=== PATIENT | female | born 1940 | race Caucasian/White ===

== ENCOUNTER 2016-07-25 12:00 | Inpatient (IN) | payer MEDICARE, OTHER ==
[~2016-07-25] VITALS: Ht 154.9 cm; Wt 78.0 kg
[2016-08-01] VITALS (22 sets, daily range): BP systolic 96–138; BP diastolic 41–68; PULSE 70–86; RESP 7–19; Ht 154.9 cm; Wt 78.0 kg
[2016-08-01] MEDS ORDERED: LACTATED RINGER'S 1,000 ML IV* ONE (06:30)
[2016-08-01] MEDS ORDERED: CEFAZOLIN 2 GM/50 ML (PMX) 50 ML IVPB ONE (06:30)
--- NOTE | 2016-08-01 06:41 | HPN ---
Date/Time of Note Date/Time of Note DATE: 08/01/16 TIME: 06:41 Interval H&P Admission Note Pt. seen H&P reviewed: No system changes SILVIA ORTIZ MD Aug 01, 2016 06:41
[2016-08-01] MEDS ORDERED: THROMBIN 5000 UNIT VIAL ONE (06:48)
[2016-08-01] MEDS ORDERED: BUPIVACAINE 0.25%/EPI (SDV) 30 ML INJ ONE (06:48)
[2016-08-01] MEDS ORDERED: GELATIN SIZE 100 SPONGE ONE (06:48)
[2016-08-01] MEDS ORDERED: BUPIVACAINE 0.25% (MPF) 30 ML INJ ONE (06:49)
[2016-08-01] MEDS ORDERED: HEPARIN 1000 UNITS/ML 10 ML INJ ONE (06:49)
[2016-08-01] MEDS ORDERED: CEFAZOLIN 1 GM INJ ONE (07:00)
[2016-08-01] MEDS ORDERED: SUCCINYLCHOLINE CHLORIDE 100 MG/5 ML SYG IV ONE (07:07)
[2016-08-01] MEDS ORDERED: FENTAnyl 50 MCG/ML VIAL ONE (07:07)
[2016-08-01] MEDS ORDERED: PROPOFOL 20 ML ONE (07:07)
[2016-08-01] MEDS ORDERED: ONDANSETRON 4 MG INJ ONE (07:07)
[2016-08-01] MEDS ORDERED: ROCURONIUM 50 MG INJ ONE (07:07)
[2016-08-01] MEDS ORDERED: METOCLOPRAMIDE 10 MG INJ ONE (07:08)
[2016-08-01] MEDS ORDERED: DULO60CA6 PO (07:19)
[2016-08-01] MEDS ORDERED: SERT-165 PO (07:19)
[2016-08-01] MEDS ORDERED: DOXE10CA PO (07:19)
[2016-08-01] MEDS ORDERED: OMEP20CA16 PO (07:19)
[2016-08-01] MEDS ORDERED: LOVA20TA PO (07:19)
[2016-08-01] MEDS ORDERED: IBUP-1542 PO (07:19)
[2016-08-01] MEDS ORDERED: LYRI100 PO (07:19)
[2016-08-01] MEDS ORDERED: PREM3 PO (07:19)
[2016-08-01] MEDS ORDERED: POLYMYXIN/BACITRACIN 1L IRRIG ONE (07:25)
[2016-08-01 07:26] LABS: ADD SCAN DIFF NO
[2016-08-01 07:30] LABS: ALBUMIN 4.7 g/dl (3.3-4.9); ALBUMIN/GLOBULIN RATIO 1.8; BILIRUBIN,INDIRECT 0.3 mg/dl (0-1.1); BILIRUBIN,TOTAL 0.3 mg/dl (0.2-1.3); TOTAL PROTEIN 7.3 g/dl (6.1-8.1)
[2016-08-01 07:31] LABS: CALCIUM 9.5 mg/dl (8.4-10.2); CREATININE 0.62 mg/dl (0.44-1.00)
[2016-08-01 07:33] LABS: BASOPHILS % 0.8 % (0.0-2.0); EOSINOPHILS # 0.2 10^3/ul (0.0-0.5); EOSINOPHILS % 6.5 % (0.0-7.0); HEMATOCRIT 35.8 % (37.0-47.0); HEMOGLOBIN 11.1 g/dl (12.0-16.0); LYMPHOCYTES # 1.1 10^3/ul (0.8-2.9); LYMPHOCYTES % 30.4 % (15.0-51.0); MEAN CORPUSCULAR HEMOGLOBIN 26.4 pg (29.0-33.0); MEAN CORPUSCULAR VOLUME 85.2 fl (82.0-101.0); MEAN PLATELET VOLUME 9.9 fl (7.4-10.4); MONOCYTE # 0.4 10^3/ul (0.3-0.9); MONOCYTES % 10.6 % (0.0-11.0); NEUTROPHIL # 1.9 10^3/ul (1.6-7.5); NEUTROPHILS % 51.4 % (39.0-77.0); PLATELET COUNT 268 10^3/UL (140-415); RED CELL DISTRIBUTION WIDTH 14.3 % (11.5-14.5); WHITE BLOOD COUNT 3.7 10^3/ul (4.8-10.8)
[2016-08-01 07:44] LABS: INR 0.94; PROTIME 12.6 Sec (12.2-14.2)
[2016-08-01 07:45] LABS: PARTIAL THROMBOPLASTIN TIME 26.5 Sec (25.0-35.0)
[2016-08-01] MEDS ORDERED: GELATIN SIZE 100 SPONGE TOP ONE (08:57)
[2016-08-01] MEDS ORDERED: THROMBIN 5000 UNIT VIAL TOP ONE (08:58)
[2016-08-01] MEDS ORDERED: BUPIVACAINE 0.25%/EPI (SDV) 30 ML INJ INJ ONE (08:59)
[2016-08-01] MEDS ORDERED: ONDANSETRON 4 MG INJ IV PRN ×2 (09:00→12:30)
[2016-08-01] MEDS ORDERED: FENTAnyl 50 MCG/ML VIAL IV PRN (09:00)
[2016-08-01] MEDS ORDERED: morphine (1 MG/ML) 10ML SYRINGE IV PRN ×3 (09:00)
--- NOTE | 2016-08-01 09:19 | RADRPT ---
PROCEDURE: XR Chest 1 View. CLINICAL INDICATION: Abnormal breath sounds, preop. TECHNIQUE: AP view of the chest was obtained. COMPARISON: None. FINDINGS: The cardiomediastinal silhouette is within normal limits. No consolidations are identified. No pneu mothorax is seen. Osseous structures are intact. IMPRESSION: No visualized active disease. RPTAT: AA .Jamin Garrido MD, Date Time Electronically viewed and signed by .Jamin Garrido MD, on 08/01/2016 09:18 .P/
[2016-08-01] MEDS: FENTAnyl 50 MCG/ML VIAL IV PRN ×4 (11:25→12:13)
[2016-08-01 11:54] LABS: ADD UMIC NO; UR BILIRUBIN (Dip) NEGATIVE (NEGATIVE); UR BLOOD (Dip) NEGATIVE (NEGATIVE); UR CLARITY CLEAR (CLEAR); UR COLOR LT. YELLOW (YELLOW); UR GLUCOSE (Dip) NEGATIVE (NEGATIVE); UR KETONES (Dip) NEGATIVE (NEGATIVE); UR LEUKOCYTE ESTERASE (Dip) NEGATIVE (NEGATIVE); UR NITRITE (Dip) NEGATIVE (NEGATIVE); UR TOTAL PROTEIN (Dip) NEGATIVE (NEGATIVE); UR UROBILINOGEN (Dip) 0.2 E.U./dL (0.1-1.0)
--- NOTE | 2016-08-01 12:05 | OPR ---
Date/Time of Note Date/Time of Note DATE: 08/01/16 TIME: 11:34 Operative Report Free Text/Dictation DATE OF OPERATION: 08/01/2016 PREOPERATIVE DIAGNOSES: 1. C4-5 anterolisthesis with severe spinal stenosis with myelomylacia and bilateral C5 radiculopathy with myelopathy 2. C5-6 severe spinal stenosis with myelopathy 3. C6-7 moderate spinal stenosis with myelopathy POSTOPERATIVE DIAGNOSES: 1. C4-5 anterolisthesis with severe spinal stenosis with myelomylacia and bilateral C5 radiculopathy with myelopathy 2. C5-6 severe spinal stenosis with myelopathy 3. C6-7 moderate spinal stenosis with myelopathy OPERATION PERFORMED: 1. Anterior cervical C4-5 discectomy 2. Partial cervical C4 vertebrectomy 3. Partial cervical C5 vertebrectomy 4. Anterior cervical C4-5 instrumented fusion with allograft cage and plate 5. Anterior cervical C5-6 discectomy 6. Partial cervical C6 vertebrectomy 7. Anterior cervical C5-6 instrumented fusion with allograft cage and plate 8. Anterior cervical C6-7 discectomy 9. Partial cervical C7 vertebrectomy 10. Anterior cervical C6-7 instrumented fusion with allograft cage and plate SURGEON: Silvia Ortiz MD CLIENT SERVICE REPRESENTATIVE: Augusto Love MD INDICATIONS: Mrs. Garrison is a 75 year old female who presented to our office with a 6 month history of worsening bilateral neck and shoulder pain and progressive difficulty with gait, balance and manual dexterity. An MRI of the cervical spine revealed severe cervical stenosis from C4-C7 with myelomalacia and C4-5 anterolisthesis. She was found to have a history of falls and issues with balance. On physical exam she had a positive Davidson's sign, hyper- reflexia and 4 beats of clonus. Given her findings on exam and imaging of cervical spondyltic myelopathy, surgery was recommended. A thorough discussion regarding risks and benefits of the procedure were discussed in detail. Risks, benefits and alternatives to the procedure were explained to the patient including but not exclusive of bleeding, infection, nerve injury, C5 palsy, spinal cord injury, dural tear, arterial injury, stroke, visceral injury, failure to relieve symptoms, nonunion, myocardial infarction, stroke, and pulmonary embolism, and they wished to proceed PROCEDURE IN DETAIL: The patient was brought in the operating room. General anesthesia was obtained. Preoperative antibiotics were given. She was carefully positioned supine on the [facility] table. The arms were padded and tucked at the sides. The neck was sterilely prepped and draped in the usual fashion. A standard left-sided skin incision was made in a prominent anterior skin fold. This was continued down through subcutaneous tissue to the platysma fascia. Full -thickness skin flaps were developed. The platysma was split in line with the direction of its fibers. The dissection proceeded through the deep cervical fascia at the interval between the esophagus and spine. The prevertebral fascia and omohyoid muscle were carefully incised. We then identified the anterior aspect of the C4-5, C5-6 and C6-7 disk spaces. The anterior longitudinal ligament was carefully isolated as was the longus coli bilaterally. A deep self- retaining retractor was placed underneath the longus colli bilaterally , and an intraoperative AP and lateral radiograph was obtained to confirm the location of the midline along with the operative leves. Once this was confirmed, the osteophyte projecting over the anterior aspect of the C4-5 disk space was at this point resected with a spinal rongeur, and then the anterior portion of the disk was incised with a #15 blade. The disk was excised in its entirety using a series of pituitary rongeurs and a drill back to the posterior longitudinal ligament. The drill was also used to perform a partial vertebrectomy/ corpectomy of the inferior aspect of the C4 vertebral body and the superior aspect of the C5 vertebral body to decompress the cord. The uncovertebral osteophytes were also resected. The posterior osteophytes projecting off the back of the C4 and C5 vertebral bodies were burred down, and then the posterior longitudinal ligament was resected bilaterally, 1st centrally and then in either direction. A foraminotomy was performed bilaterally until a probe could be easily passed along the pathway of the C5 root bilaterally. Hemostasis was obtained at this point, and then a series of trial sizers were used to select a 10mm MTF bone parallel implant which was inserted at C4-5 cervical level. We then focused our attention on the C5-6 cervical level. The osteophyte projecting over the anterior aspect of the C5-6 disk space was at this point resected with a spinal rongeur, and then the anterior portion of the disk was incised with a #15 blade. The disk was excised in its entirety using a series of pituitary rongeurs and a drill back to the posterior longitudinal ligament. The drill was also used to perform a partial vertebrectomy/ corpectomy of the inferior aspect of the C5 vertebral body and the superior aspect of the C6 vertebral body to decompress the cord. The uncovertebral osteophytes were also resected. The posterior osteophytes projecting off the back of the C5 and C6 vertebral bodies were burred down, and then the posterior longitudinal ligament was resected bilaterally, 1st centrally and then in either direction. A foraminotomy was performed bilaterally until a probe could be easily passed along the pathway of the C6 root bilaterally. Hemostasis was obtained at this point, and then a series of trial sizers were used to select a 8mm MTF bone parallel implant which was inserted at C5-6 cervical level. We then focused our attention on the C6-7 cervical level. The osteophyte projecting over the anterior aspect of the C6-7 disk space was at this point resected with a spinal rongeur, and then the anterior portion of the disk was incised with a #15 blade. The disk was excised in its entirety using a series of pituitary rongeurs and a drill back to the posterior longitudinal ligament. The drill was also used to perform a partial vertebrectomy/ corpectomy of the inferior aspect of the C6 vertebral body and the superior aspect of the C7 vertebral body to decompress the cord. The uncovertebral osteophytes were also resected. The posterior osteophytes projecting off the back of the C6 and C7 vertebral bodies were burred down, and then the posterior longitudinal ligament was resected bilaterally, 1st centrally and then in either direction. A foraminotomy was performed bilaterally until a probe could be easily passed along the pathway of the C7 root bilaterally. Hemostasis was obtained at this point, and then a series of trial sizers were used to select a 9mm MTF bone parallel implant which was inserted at C6-7 cervical level. Intraoperative fluoroscopy was the used to evaluate our implants. Our implants demonstrated good alignment and we visualized reduction of the C4-5 anterolisthesis. We then chose the appopriately sized Vectra T plate (45 mm). We applied the plate in standard technique with 4.0 mm x 14 mm screws x 2 and 4.5 x 14 mm screws x6. Intraoperative fluoroscopy was the used to evaluate our construct with both AP and lateral views. Once this was positioned appropriately , the operative site was washed out extensively with sterile normal saline. There was no significant bleeding. The platysma fascia was then closed with 3-0 Vicryl suture over a 1/8-inch drain, followed by 3-0 Vicryl suture to close the superficial subcutaneous tissue and 4-0 monocryl to close the skin in a running subcuticular fashion. Dermabond was placed, followed by a sterile dressing. The patient was extubated and transferred out to the postanesthesia care unit in a hard collar in good condition. There were no complications. Estimated Blood Loss: 50 - 100 ml's Complications: None Pt Condition Post Procedure: stable Disposition: PACU SILVIA ORTIZ MD Aug 01, 2016 11:57
[2016-08-01] MEDS ORDERED: morphine 1 MG/ML 30 ML (PCA) ONE (12:08)
[2016-08-01] MEDS ORDERED: ACETAMINOPHEN 325 MG TAB PO PRN (12:30)
[2016-08-01] MEDS ORDERED: NALOXONE (0.4 MG/ML) INJ IV PRN (12:30)
[2016-08-01] MEDS ORDERED: HYDROCODONE/APAP (5/325) TAB PO PRN ×2 (12:30)
[2016-08-01] MEDS ORDERED: NACL 0.9% 3 ML SYG IV SCH (12:30)
[2016-08-01] MEDS: morphine 1 MG/ML 30 ML (PCA) IV SCH ×2 (12:30→21:59)
--- NOTE | 2016-08-01 13:22 | RADRPT ---
PROCEDURE: Intraoperative fluoroscopy. CLINICAL INDICATION: Intraoperative fluoroscopy during cervical spine surgery. TECHNIQUE: 5 spot intraoperative fluoroscopic images were provided. The images were reviewed on a high-resolution PACS workstation. COMPARISON: None available. FINDINGS: Multiple spot intraoperative fluoroscopic views were provided during cervical spine surgery. The im ages demonstrate initial metallic probe at C4-5. Subsequent images demonstrate subsequent placement of anterior vertebral body screws and C4, C5, C6 and C7 vertebral bodies with anterior spinal fusio n plate. There are disc-spacers at C4-5, C5-6 and C6-7. The total fluoroscopy time was 18.5 second s. IMPRESSION: 1. Multiple spot intraoperative fluoroscopic views during cervical spine fusion were provided. 2. Please see operative report of the same day for further information. RPTAT: HGAS .Derek Dolan MD, Date Time Electronically viewed and signed by .Derek Dolan MD, on 08/01/2016 13:22 .S/
[2016-08-01] MEDS: CEFAZOLIN 1 GM/50 ML (PMX) 50 ML IVPB SCH ×2 (13:48→18:52)
--- NOTE | 2016-08-01 15:47 | RADRPT ---
Vent Rate: 64 bpm RR Interval: 0 msec RI Interval: 142 msec QRS Duration: 82 msec QT Interval: 422 msec QTC Interval: 435 msec P-R-T Roxie: 53 - -26 - 49 degrees Normal sinus rhythm Normal ECG Electronically Signed By: Nadir iRvas [id number]
[2016-08-01] MEDS: PROCHLORPERAZINE 10 MG INJ IV PRN (16:06)
--- NOTE | 2016-08-01 19:17 | RADRPT ---
PROCEDURE: MR Cervical Spine. CLINICAL INDICATION: Both cervical spine surgery TECHNIQUE: An MRI of the cervical spine was performed utilizing the following sequences: Sagittal and axial T1 weighted, sagittal and axial T2 weighted, sagittal T2 weighted with fat saturation, and axial GRE. COMPARISON: Intraoperative fluoroscopic views 08/01/2016 FINDINGS: There is straightening of the normal cervical lordosis. There is anterior cervical discectomy and f usion extending from C4 through C7. Vertebral body heights above and below the fusion appear mainta ined. There is mild disk space narrowing at C3-C4 and C7-T1. There is no subluxation. There is fl uid in the bilateral C4-C5 facet joints. There is congenital appearing narrowing of the central spin al canal. There is possible minimal core T2 hyperintensity at the C4-C6 levels. The craniocervical and cervical medullary junctions are unremarkable. Occiput-C2: The anatomic relationships are normal without canal stenosis. C2-3: There is no disk protrusion or extrusion. There is no central or neural foraminal stenosis. C3-4: There is left uncovertebral hypertrophy. There is moderate to severe left facet hypertrophy. There is no right facet hypertrophy. There is no central canal stenosis. There is severe appearin g left foraminal stenosis. There is no right foraminal stenosis. C4-5: There is interbody fusion. There is moderate bilateral facet hypertrophy. There is moderate appearing central canal stenosis with AP canal diameter measuring 8 mm. There is moderate appearing right and mild appearing left foraminal stenosis, with assessment partially limited by hardware art ifact. C5-6: There is interbody fusion. There is minimal bilateral facet hypertrophy. There is moderate c entral canal stenosis. There is mild to moderate bilateral foraminal stenosis. C6-C7: There is a minimal disk osteophyte complex and bilateral uncovertebral hypertrophy. There i s minimal bilateral facet hypertrophy. There is moderate appearing central canal stenosis. There i s mild to moderate appearing left and minimal right foraminal stenosis. C7-T1: There is no disk protrusion or extrusion. There is minimal bilateral facet hypertrophy. The re is no significant central canal or neural foraminal stenosis. The paravertebral soft tissues are unremarkable. IMPRESSION: 1. Anterior cervical discectomy and fusion from C4-C7. 2. 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 There is a moderate appearing centra l canal stenosis at C4-C5 through C6-C7, with effacement of the thecal sac. There is possible minim al T2 cord hyperintensity, which may reflect minimal myelomalacia or edema, versus artifact. 3. Facet hypertrophy, moderate to severe on the left at C3-C4 and moderate on both sides at C4-C5. Uncovertebral hypertrophy noted at C6-C7. 4. Probable moderate right foraminal stenosis at C4-C5, and mild to moderate foraminal stenosis as noted at C5-C6 and C6-C7, with assessment limited by hardware artifact. Severe appearing left juan inal stenosis at C3-C4. RPTAT: HBST .Byron Harp MD, MD Date Time Electronically viewed and signed by .Byron Harp MD, on 08/01/2016 19:17 .T/
[2016-08-02] VITALS (14 sets, daily range): BP systolic 104–140; BP diastolic 49–63; PULSE 89–97; RESP 9–26
[2016-08-02] MEDS: CEFAZOLIN 1 GM/50 ML (PMX) 50 ML IVPB SCH ×2 (01:18→05:53)
[2016-08-02 07:26] LABS: HEMATOCRIT 33.4 % (37.0-47.0); HEMOGLOBIN 10.2 g/dl (12.0-16.0)
[2016-08-02 07:49] LABS: CALCIUM 8.2 mg/dl (8.4-10.2); CREATININE 0.51 mg/dl (0.44-1.00); POTASSIUM 3.8 mmol/L (3.5-5.1)
[2016-08-02] MEDS ORDERED: DIPHENHYDRAMINE 50 MG INJ IV PRN (10:00)
[2016-08-02] MEDS: DULOXETINE 30 MG CAP DR PO SCH (14:30)
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
[2016-08-02] MEDS: PANTOPRAZOLE (EC) 40 MG TAB PO SCH (14:57)
[2016-08-02] MEDS: DEXTROSE 5%-0.9% NACL 1,000 ML IV SCH (17:49)
[2016-08-02] MEDS: SERTRALINE 100 MG TAB PO SCH (21:00)
[2016-08-02] MEDS: DOXEPIN 10 MG CAP PO SCH (21:00)
[2016-08-02] MEDS: ATORVASTATIN 10 MG TAB PO SCH (21:00)
[2016-08-02] MEDS: PREGABALIN 100 MG CAP PO SCH (21:00)
[2016-08-02] MEDS: ACETAMINOPHEN 1000MG/100ML IV 100 ML IVPB PRN (21:31)
[2016-08-02] MEDS: SALMETEROL/FLUTICASONE 250/50 INHA INH SCH (21:38)
[2016-08-03 05:41] LABS: CALCIUM 8.6 mg/dl (8.4-10.2); CREATININE 0.47 mg/dl (0.44-1.00); POTASSIUM 3.1 mmol/L (3.5-5.1)
[2016-08-03] MEDS: PANTOPRAZOLE (EC) 40 MG TAB PO SCH (06:00)
[2016-08-03 06:06] LABS: HEMATOCRIT 31.6 % (37.0-47.0); HEMOGLOBIN 9.5 g/dl (12.0-16.0)
[2016-08-03] MEDS: DEXTROSE 5%-0.9% NACL 1,000 ML IV SCH (06:43)
[2016-08-03 07:00] VITALS: BP 151/67; RESP 18
[2016-08-03] MEDS ORDERED: POTASSIUM CHLORIDE (SR) 20 MEQ TAB PO STA (07:17)
--- NOTE | 2016-08-03 07:49 | CONS ---
Date/Time of Note Date/Time of Note DATE: 08/03/16 TIME: 07:40 Assessment/Plan Assessment/Plan Problems: (1) Dysphagia Status: Acute Comment: Pt. unable to take any po. Now not receiving any pain meds b/c ESTIMATOR AND DRAFTER stopped as scheduled but orals not started. Resume IV morphine prn. Replace KCl IV. Hot water bottle for epigastric gas pains. Increase IV nutrition to D10 and add KCl. Await more ST. Defer to primary team to decide if anesthesia needs to examine pt.'s lopez-pharyngeal region for evidence of trauma. Possible role for IV steroids. (2) Gastroesophageal reflux disease Status: Chronic Comment: Change pantoprazole to IV Qualifiers: Esophagitis presence: without esophagitis Qualified Code: K21.9 - Gastroesophageal reflux disease without esophagitis (3) Hyperlipidemia Status: Chronic Comment: Statin on hold Qualifiers: Hyperlipidemia type: pure hypercholesterolemia Qualified Code: E78.00 - Pure hypercholesterolemia (4) Overactive bladder Status: Chronic Comment: Meds on hold (5) Restless leg syndrome Status: Chronic Comment: Pregabalin on hold (6) Asthma, mild intermittent Status: Chronic Comment: Breathing treatments prn Qualifiers: Asthma complication type: uncomplicated Qualified Code: J45.20 - Mild intermittent asthma without complication (7) Status post cervical spinal fusion Status: Acute Comment: Per primary team (8) Cervical spinal stenosis Status: Resolved (9) Cervical cord compression with myelopathy Status: Resolved (10) Aftercare following surgery of the musculoskeletal system Status: Acute Comment: Doing fair POD#2 except for this dysphagia issue. Will follow. Consultation Date/Type/Reason Admit Date/Time Aug 01, 2016 at 05:32 Initial Consult Date 08/02/16 Type of Consultation: Internal medicine Reason for Consultation Medical Management Referring Provider: SILVIA ORTIZ MD 24 HR Interval Summary Constitutional: poor po, requiring IVF Detailed Summary ENT: dysphagia (complete to solids and liquids) Respiratory: no complaints Cardiovascular: no complaints Gastrointestinal: pain (epigastric gas pains), No decreased appetite (hungry) Genitourinary: no complaints Musculoskeletal: neck pain (cannot take oral pain meds and IV pain meds have been d/c'ed) Neurologic: no complaints Exam/Review of Systems Vital Signs Vitals VS - Last 72 Hours, by Label Date Time Temp Pulse Resp B/P Pulse Ox O2 Delivery O2 Flow Rate FiO2 6/16/17 19:46 98.6 97 18 140/63 99 08/02/16 12:30 16 08/02/16 12:30 97.8 89 16 111/56 100 Nasal Cannula 2.0 08/02/16 12:00 Nasal Cannula 2.0 08/02/16 11:00 94 13 106/56 95 Mechanical Ventilator 08/02/16 11:00 98.7 91 18 116/57 98 08/02/16 10:00 95 9 106/52 97 Mechanical Ventilator 08/02/16 09:00 97 12 104/51 97 Mechanical Ventilator 08/02/16 08:00 Nasal Cannula 2.0 08/02/16 08:00 98.3 95 17 112/52 97 Mechanical Ventilator 08/02/16 08:00 90 08/02/16 07:00 94 26 121/57 97 Mechanical Ventilator 08/02/16 06:00 91 13 112/54 98 08/02/16 05:00 93 12 121/52 96 08/02/16 04:00 91 08/02/16 04:00 16 08/02/16 04:00 93 12 113/55 97 08/02/16 03:00 93 14 107/52 90 08/02/16 02:00 93 12 112/56 94 08/02/16 01:00 92 13 104/49 98 08/02/16 00:15 14 08/02/16 00:00 90 20 110/49 98 08/02/16 00:00 90 08/01/16 23:00 86 12 100/52 100 08/01/16 22:00 16 08/01/16 22:00 85 16 106/58 98 08/01/16 21:00 83 8 104/53 100 08/01/16 20:05 16 08/01/16 20:00 Nasal Cannula 2.0 08/01/16 20:00 98.3 08/01/16 20:00 84 13 96/46 99 08/01/16 20:00 84 08/01/16 19:00 85 14 97/56 98 Nasal Cannula 2.0 08/01/16 19:00 85 7 97/56 98 08/01/16 18:00 12 99/52 96 Nasal Cannula 2.0 08/01/16 17:00 81 8 100/51 99 Nasal Cannula 2.0 08/01/16 16:00 Nasal Cannula 2.0 08/01/16 16:00 82 08/01/16 16:00 12 08/01/16 16:00 81 10 105/53 100 Nasal Cannula 2.0 08/01/16 15:21 98.3 82 10 108/51 90 Nasal Cannula 2.0 08/01/16 15:00 80 08/01/16 13:15 Nasal Cannula 2.0 08/01/16 12:48 77 15 103/41 100 Nasal Cannula 2.0 08/01/16 12:43 15 08/01/16 12:34 78 14 121/58 100 Nasal Cannula 2.0 08/01/16 12:30 14 08/01/16 12:29 78 14 116/62 100 Nasal Cannula 2.0 08/01/16 11:47 76 19 119/50 100 Nasal Cannula 2.0 08/01/16 11:42 74 15 114/65 100 Nasal Cannula 2.0 08/01/16 11:37 72 12 120/52 100 Nasal Cannula 2.0 08/01/16 11:32 72 12 116/51 100 Nasal Cannula 2.0 08/01/16 11:27 70 12 124/56 100 Nasal Cannula 2.0 08/01/16 11:22 72 16 115/48 97 Nasal Cannula 3.0 08/01/16 11:17 70 14 120/61 100 Nasal Cannula 3.0 08/01/16 11:12 98.0 71 12 124/63 98 Nasal Cannula 3.0 08/01/16 11:10 Nasal Cannula 2.0 08/01/16 07:02 97.4 78 16 138/68 96 Room Air Vital Signs Date Time Temp Pulse Resp B/P Pulse Ox O2 Delivery O2 Flow Rate FiO2 08/02/16 19:46 98.6 97 18 140/63 99 08/02/16 12:30 Nasal Cannula 2.0 Intake and Output 08/02/16 08/02/16 08/03/16 15:00 23:00 07:00 Intake Total 100 ml 950 ml Output Total 135 ml 630 ml 700 ml Balance -135 ml -530 ml 250 ml Exam Constitutional: alert, frail, oriented Psych: nl mood/affect, no complaints Respiratory: clear to auscultation, normal air movement Cardiovascular: nl pulses, regular rate and rhythm, No edema, No murmurs/extra sounds, No rub Gastrointestinal: bowel sounds, nl liver, spleen, non-tender, soft, No mass, No rebound or guarding Musculoskeletal: nl extremities to inspection Extremities: normal pulses, No clubbing, No cyanosis, No edema Neurological: EXTRAS CASTING DIRECTOR II-XII intact, nl mental status, nl speech, nl strength Results Result Diagram: 08/03/165 08/03/16 0445 Results 24 hrs Laboratory Tests Test 08/03/16 04:45 Hemoglobin 9.5 L Hematocrit 31.6 L Sodium Level 140 Potassium Level 3.1 L Chloride Level 104 Carbon Dioxide Level 28 Anion Gap 11 Blood Urea Nitrogen 7 Creatinine 0.47 Glucose Level 113 Calcium Level 8.6 Medications Medications Current Medications Acetaminophen/ Hydrocodone Bitart ([place] (5/325)) 1 tab Q4H PRN PO PAIN LEVEL 1 -5; Start 08/01/16 at 12:30 Acetaminophen/ Hydrocodone Bitart ([place] (5/325)) 2 tab Q4H PRN PO PAIN LEVEL 6 -10; Start 08/01/16 at 12:30 Ondansetron HCl (Zofran Inj) 4 mg Q6H PRN IV NAUSEA AND/OR VOMITING Last administered on 08/01/16 13:42; Admin Dose 4 MG; Start 08/01/16 at 12:30 Acetaminophen (Tylenol Tab) 650 mg Q4H PRN PO TEMP GREATER THAN 101F OR MILLER; Start 08/01/16 at 12:30 Naloxone HCl (Narcan) 0.2 mg Q2M PRN IV RR 8 BREATHS/MIN OR LESS; Start at 12:30 Prochlorperazine (Compazine Inj) 5 mg Q4H PRN IV NAUSEA AND/OR VOMITING Last administered on 08/01/16 16:06; Admin Dose 5 MG; Start 08/01/16 at 16:00 Diphenhydramine HCl (Benadryl) 25 mg Q6H PRN IV ITCHING Last administered on 10:28; Admin Dose 25 MG; Start 08/02/16 at 10:00 Doxepin HCl (Sinequan) 10 mg HS PO ; Start 08/02/16 at 21:00 Duloxetine HCl (Cymbalta) 60 mg DAILY PO ; Start 08/02/16 at 14:30 Estrogens Conjugated (Premarin) 0.3 mg DAILY PO ; Start 08/03/16 at 09:00 Pregabalin (Lyrica) 100 mg BID PO ; Start 08/02/16 at 21:00 Sertraline HCl (Zoloft) 100 mg BID PO ; Start 08/02/16 at 21:00 Pantoprazole (Protonix Tab) 40 mg DAILY@06 PO ; Start 08/02/16 at 15:00 Atorvastatin Calcium (Lipitor) 10 mg HS PO ; Start 08/02/16 at 21:00 Salmeterol Xinafoate/ Fluticasone 1 inh 1 inh BID INH Last administered on 08/02 21:38; Admin Dose 1 INH; Start 08/02/16 at 21:00 Dextrose/Sodium Chloride 1,000 ml @ 75 mls/hr [id number] IV Last administered on 08/03/16 06:43; Admin Dose 75 MLS/HR; Start 08/02/16 at 17:30 Acetaminophen (Ofirmev 1000mg/ 100ml Iv) 100 ml @ 400 mls/hr Q6H PRN IVPB pain Last administered on 08/02/16 21:31; Admin Dose 400 MLS/HR; Start at 20:00 Morphine Sulfate (morphine) 1 mg Q3H PRN IV severe pain; Start 08/02/16 at 20: 00 ANNITA MOSQUEDA MD Aug 03, 2016 07:48
[2016-08-03] MEDS: DULOXETINE 30 MG CAP DR PO SCH (07:59)
[2016-08-03] MEDS: SERTRALINE 100 MG TAB PO SCH ×2 (08:00→20:35)
[2016-08-03] MEDS: ESTROGENS CONJUGATED 0.3 MG TAB PO SCH (08:00)
[2016-08-03] MEDS: PREGABALIN 100 MG CAP PO SCH ×2 (08:00→20:35)
[2016-08-03] MEDS ORDERED: POTASSIUM CHLORIDE 250 ML IVPB ONE (09:00)
[2016-08-03] MEDS: SALMETEROL/FLUTICASONE 250/50 INHA INH SCH ×2 (09:02→20:42)
[2016-08-03] MEDS ORDERED: DEXAMETHASONE 10 MG/ML 1 ML INJ IV ONE (11:00)
--- NOTE | 2016-08-03 11:11 | PN ---
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 She had no acute overnight events. She is currently reporting some difficulty with swallowing. She has been satting well on room air. She has been transferred to the Med/Surg floor. Her pain is currently be ing controlled with IV morphine 1 mg q.3h. with IV Tylenol. She will be evaluated by speech pathol lotus today again. She reports that she has had no issues with her wound overnight. She has been n.p .o. on IV fluids until she passes a swallow evaluation test today. She is scheduled to work with ph ysical therapy today. The medicine team is also helping us in management of this patient. OBJECTIVE: The patient has been afebrile. Her vital signs are stable. Her H and H is stable at 9. 5/31.6. She has some hypokalemia with a potassium of 3.1. PHYSICAL EXAMINATION: GENERAL: She is alert and oriented x3, no acute distress. SPINE: The patient has 5/5 strength in her bilateral deltoids, biceps, triceps, wrist extensors, wr ist flexors, and interossei. She has some decreased sensation to light touch at C5 to C6 and the C7 nerve root distributions, which is mild and chronic since before the operation. Her anterior cervi dorothy incision is clean, dry and intact with no evidence of drainage and the Hemovac has been removed yesterday. ASSESSMENT AND PLAN: The patient is a 75-year-old female postop day 2 status post C4 to C7 anterior cervical diskectomy and fusion with partial corpectomy for cervical spondylitic myelopathy. PLAN: We will have a speech evaluation team reevaluate her today to make sure that it is safe for h er to begin a clear diet. We will give her 10 mg of IV Decadron, given her dysphagia. We will hicks ge her collar from a [place] to [place] J collar given the discomfort she is currently experienci ng. She has also been given a soft collar to wear for comfort when sleeping. We will continue to m anage her pain medications with IV morphine and IV Tylenol. We will discontinue the Tate today onc e she is up and walking with PT. Medicine team will work with normalizing her electrolytes, given h ypokalemia. We will continue to monitor this patient closely during this admission. Dictated By: SILVIA ENGLAND/SAUL Conf#: [id number] DID#: [id number]
[2016-08-03] MEDS: DEXTROSE IV SCH ×6 (12:01→22:25)
[2016-08-03] MEDS: POTASSIUM CHLORIDE IV SCH ×6 (12:01→22:25)
[2016-08-03] MEDS: [UNRECOGNIZED DRUG - OTHER] IV SCH ×6 (12:01→22:25)
[2016-08-03 19:00] VITALS: BP 134/73; RESP 18
[2016-08-03] MEDS: DOXEPIN 10 MG CAP PO SCH (20:35)
[2016-08-03] MEDS: ATORVASTATIN 10 MG TAB PO SCH (20:35)
[2016-08-03 21:11] VITALS: BP 139/67; RESP 20
[2016-08-04 05:03] LABS: ADD SCAN DIFF NO
[2016-08-04] MEDS: PANTOPRAZOLE 40 MG INJ IV SCH (05:05)
[2016-08-04 05:12] LABS: BASOPHILS % 0.3 % (0.0-2.0); EOSINOPHILS # 0.1 10^3/ul (0.0-0.5); EOSINOPHILS % 0.7 % (0.0-7.0); HEMATOCRIT 32.3 % (37.0-47.0); LYMPHOCYTES # 0.9 10^3/ul (0.8-2.9); MEAN CORPUSCULAR HEMOGLOBIN 26.2 pg (29.0-33.0); MEAN CORPUSCULAR VOLUME 84.8 fl (82.0-101.0); MEAN PLATELET VOLUME 9.6 fl (7.4-10.4); MONOCYTE # 0.6 10^3/ul (0.3-0.9); MONOCYTES % 8.5 % (0.0-11.0); NEUTROPHIL # 5.5 10^3/ul (1.6-7.5); NEUTROPHILS % 77.2 % (39.0-77.0); PLATELET COUNT 276 10^3/UL (140-415); RED BLOOD COUNT 3.81 10^6/ul (4.20-5.40); RED CELL DISTRIBUTION WIDTH 13.7 % (11.5-14.5); WHITE BLOOD COUNT 7.1 10^3/ul (4.8-10.8)
[2016-08-04 05:46] LABS: CALCIUM 8.9 mg/dl (8.4-10.2); CREATININE 0.46 mg/dl (0.44-1.00); POTASSIUM 3.8 mmol/L (3.5-5.1)
[2016-08-04] MEDS: DEXTROSE IV SCH ×6 (06:20→21:18)
[2016-08-04] MEDS: POTASSIUM CHLORIDE IV SCH ×6 (06:20→21:18)
[2016-08-04] MEDS: [UNRECOGNIZED DRUG - OTHER] IV SCH ×6 (06:20→21:18)
[2016-08-04] MEDS: ACETAMINOPHEN 1000MG/100ML IV 100 ML IVPB PRN ×2 (07:23→20:09)
[2016-08-04] MEDS: PREGABALIN 100 MG CAP PO SCH ×2 (08:01→20:01)
[2016-08-04] MEDS: ESTROGENS CONJUGATED 0.3 MG TAB PO SCH (08:01)
[2016-08-04] MEDS: DULOXETINE 30 MG CAP DR PO SCH (08:01)
[2016-08-04] MEDS: SERTRALINE 100 MG TAB PO SCH ×2 (08:01→20:01)
[2016-08-04] MEDS: SALMETEROL/FLUTICASONE 250/50 INHA INH SCH ×2 (08:13→20:09)
[2016-08-04 08:21] VITALS: BP_SYST 117; BP_SYST 136; BP_DIAS 63; BP_DIAS 78; RESP 20
--- NOTE | 2016-08-04 12:42 | RADRPT ---
PROCEDURE: XR Cervical Spine. CLINICAL INDICATION: Evaluate postop, the patient with C-collar TECHNIQUE: AP, lateral, swimmers, oblique and odontoid views of the cervical spine were performed. The images were reviewed on a PACS workstation. COMPARISON: Intraoperative survey cervical spine x-rays of 08/01/2016 and MRI cervical spine of FINDINGS: The patient is status post anterior cervical fusion C4 through C7. The cervical segments are aligned . No acute fracture seen. There is prevertebral soft tissue swelling increased compared to the prev ious postoperative MRI. Mild lateral mass degenerative changes at C1-2. Degenerative changes in vis ualized upper thoracic spine. Calcification in the aortic arch. IMPRESSION: Status post anterior cervical fusion C4-C7. Prevertebral soft tissue swelling increased compared to postoperative MRI. Please see above. RPTAT: HJES .Charli Sanders MD, MD Date Time Electronically viewed and signed by .Charli Sanders MD, on 08/04/2016 12:42 .S/
--- NOTE | 2016-08-04 14:10 | CONS ---
Date/Time of Note Date/Time of Note DATE: 08/04/16 TIME: 14:05 Assessment/Plan Assessment/Plan Problems: (1) Dysphagia Status: Acute Comment: Primary team sent pt. for plain films of c-spine and found to have soft tissue swelling anterior to vertebrae not seen on previous MRI done 3 days ago post-surgery. Hematoma vs. inflamed. Will start dexamethasone 4 mg IV q6. If pt. not improving tomorrow, consider ENT consult to evaluate to see if retropharyngeal hematoma needs to be drained. (2) Aftercare following surgery of the musculoskeletal system Status: Acute Comment: Otherwise doing fair POD#3. C-collar in place. Pain controlled w/ IV acetaminophen only. Potassium normalized. Blood counts stable. Will follow with you. Consultation Date/Type/Reason Admit Date/Time Aug 01, 2016 at 05:32 Initial Consult Date 08/02/16 Type of Consultation: Internal medicine Reason for Consultation Medical management Referring Provider: SILVIA ORTIZ MD 24 HR Interval Summary Constitutional: no complaints Detailed Summary ENT: other (thirsty) Respiratory: no complaints Cardiovascular: no complaints Gastrointestinal: no complaints Genitourinary: no complaints Musculoskeletal: no complaints, No neck pain Neurologic: no complaints Exam/Review of Systems Vital Signs Vitals VS - Last 72 Hours, by Label Date Time Temp Pulse Resp B/P Pulse Ox O2 Delivery O2 Flow Rate FiO2 08/04/16 08:21 98.0 84 20 136/63 98 08/03/16 21:11 98.5 89 20 139/67 98 08/03/16 19:00 97.2 18 134/73 96 08/03/16 07:00 98.6 82 18 151/67 98 08/02/16 19:46 98.6 97 18 140/63 99 08/02/16 12:30 16 08/02/16 12:30 97.8 89 16 111/56 100 Nasal Cannula 2.0 08/02/16 12:00 Nasal Cannula 2.0 08/02/16 11:00 94 13 106/56 95 Mechanical Ventilator 08/02/16 11:00 98.7 91 18 116/57 98 08/02/16 10:00 95 9 106/52 97 Mechanical Ventilator 08/02/16 09:00 97 12 104/51 97 Mechanical Ventilator 08/02/16 08:00 Nasal Cannula 2.0 08/02/16 08:00 98.3 95 17 112/52 97 Mechanical Ventilator 08/02/16 08:00 90 08/02/16 07:00 94 26 121/57 97 Mechanical Ventilator 08/02/16 06:00 91 13 112/54 98 08/02/16 05:00 93 12 121/52 96 08/02/16 04:00 91 08/02/16 04:00 16 08/02/16 04:00 93 12 113/55 97 08/02/16 03:00 93 14 107/52 90 08/02/16 02:00 93 12 112/56 94 08/02/16 01:00 92 13 104/49 98 08/02/16 00:15 14 08/02/16 00:00 90 20 110/49 98 08/02/16 00:00 90 08/01/16 23:00 86 12 100/52 100 08/01/16 22:00 16 08/01/16 22:00 85 16 106/58 98 08/01/16 21:00 83 8 104/53 100 08/01/16 20:05 16 08/01/16 20:00 Nasal Cannula 2.0 08/01/16 20:00 98.3 08/01/16 20:00 84 13 96/46 99 08/01/16 20:00 84 08/01/16 19:00 85 14 97/56 98 Nasal Cannula 2.0 08/01/16 19:00 85 7 97/56 98 08/01/16 18:00 12 99/52 96 Nasal Cannula 2.0 08/01/16 17:00 81 8 100/51 99 Nasal Cannula 2.0 08/01/16 16:00 Nasal Cannula 2.0 08/01/16 16:00 82 08/01/16 16:00 12 08/01/16 16:00 81 10 105/53 100 Nasal Cannula 2.0 08/01/16 15:21 98.3 82 10 108/51 90 Nasal Cannula 2.0 08/01/16 15:00 80 Vital Signs Date Time Temp Pulse Resp B/P Pulse Ox O2 Delivery O2 Flow Rate FiO2 08/04/16 08:21 98.0 84 20 136/63 98 08/02/16 12:30 Nasal Cannula 2.0 Intake and Output 08/03/16 08/03/16 08/04/16 15:00 23:00 07:00 Intake Total 400 ml 880 ml Output Total 1000 ml 900 ml Balance -600 ml -20 ml Exam Constitutional: alert, frail, oriented Respiratory: clear to auscultation, normal air movement Cardiovascular: nl pulses, regular rate and rhythm, No edema, No murmurs/extra sounds, No rub Gastrointestinal: bowel sounds, nl liver, spleen, non-tender, soft, No mass, No rebound or guarding Musculoskeletal: nl extremities to inspection Extremities: normal pulses, No clubbing, No cyanosis, No edema Neurological: DIRECTOR ACUTE II-XII intact, nl mental status, nl speech, nl strength Results Result Diagram: 08/04/16 0450 08/04/16 0450 Results 24 hrs Laboratory Tests Test 08/04/16 04:50 White Blood Count 7.1 # Red Blood Count 3.81 L Hemoglobin 10.0 L Hematocrit 32.3 L Mean Corpuscular Volume 84.8 Mean Corpuscular Hemoglobin 26.2 L Mean Corpuscular Hemoglobin Concent 31.0 L Red Cell Distribution Width 13.7 Platelet Count 276 Mean Platelet Volume 9.6 Neutrophils % 77.2 H Lymphocytes % 13.0 L Monocytes % 8.5 Eosinophils % 0.7 Basophils % 0.3 Nucleated Red Blood Cells % 0.0 Neutrophils # 5.5 Lymphocytes # 0.9 Monocytes # 0.6 Eosinophils # 0.1 Basophils # 0.0 Nucleated Red Blood Cells # 0.0 Sodium Level 138 Potassium Level 3.8 Chloride Level 105 Carbon Dioxide Level 28 Anion Gap 9 Blood Urea Nitrogen 10 Creatinine 0.46 Glucose Level 142 Calcium Level 8.9 Medications Medications Current Medications Acetaminophen/ Hydrocodone Bitart ([place] (5/325)) 1 tab Q4H PRN PO PAIN LEVEL 1 -5; Start 08/01/16 at 12:30 Acetaminophen/ Hydrocodone Bitart ([place] (5/325)) 2 tab Q4H PRN PO PAIN LEVEL 6 -10; Start 08/01/16 at 12:30 Ondansetron HCl (Zofran Inj) 4 mg Q6H PRN IV NAUSEA AND/OR VOMITING Last administered on 08/01/16t 13:42; Admin Dose 4 MG; Start 08/01/16 at 12:30 Acetaminophen (Tylenol Tab) 650 mg Q4H PRN PO TEMP GREATER THAN 101F OR MILLER; Start 08/01/16 at 12:30 Naloxone HCl (Narcan) 0.2 mg Q2M PRN IV RR 8 BREATHS/MIN OR LESS; Start at 12:30 Prochlorperazine (Compazine Inj) 5 mg Q4H PRN IV NAUSEA AND/OR VOMITING Last administered on 08/01/16 16:06; Admin Dose 5 MG; Start 08/01/16 at 16:00 Diphenhydramine HCl (Benadryl) 25 mg Q6H PRN IV ITCHING Last administered on 10:28; Admin Dose 25 MG; Start 08/02/16 at 10:00 Doxepin HCl (Sinequan) 10 mg HS PO ; Start 08/02/16 at 21:00 Duloxetine HCl (Cymbalta) 60 mg DAILY PO ; Start 08/02/16 at 14:30 Estrogens Conjugated (Premarin) 0.3 mg DAILY PO ; Start 08/03/16 at 09:00 Pregabalin (Lyrica) 100 mg BID PO ; Start 08/02/16 at 21:00 Sertraline HCl (Zoloft) 100 mg BID PO ; Start 08/02/16 at 21:00 Atorvastatin Calcium (Lipitor) 10 mg HS PO ; Start 08/02/16 at 21:00 Salmeterol Xinafoate/ Fluticasone 1 inh 1 inh BID INH Last administered on 08/04 08:13; Admin Dose 1 INH; Start 08/02/16 at 21:00 Acetaminophen (Ofirmev 1000mg/ 100ml Iv) 100 ml @ 400 mls/hr Q6H PRN IVPB pain Last administered on 08/04/16 07:23; Admin Dose 400 MLS/HR; Start at 20:00 Morphine Sulfate (morphine) 1 mg Q3H PRN IV PAIN; Start 08/02/16 at 20:00 Pantoprazole 40 mg 40 mg DAILY@06 IV Last administered on 08/04/16 05:05; Admin Dose 40 MG; Start 08/04/16 at 06:00 Sodium Chloride/ Potassium Chloride/Dextrose (Nacl/KCl/D10w) 1,029.25 ml @ 75 mls/hr [id number] IV Last administered on 08/04/16 06:20; Admin Dose 75 MLS/HR; Start 08/03/16 at 09:00 Dexamethasone (Decadron) 4 mg Q6 IV ; Start 08/04/16 at 15:00 ANNITA MOSQUEDA MD Aug 04, 2016 14:10
[2016-08-04] MEDS: DEXAMETHASONE 4 MG/ML 1 ML INJ IV SCH ×2 (14:42→18:31)
[2016-08-04] MEDS: LORAZEPAM 2 MG INJ IV PRN (18:45)
[2016-08-04 19:10] VITALS: BP 183/79; RESP 19
[2016-08-04 19:15] VITALS: BP 123/81; RESP 20
[2016-08-04] MEDS: ATORVASTATIN 10 MG TAB PO SCH (20:01)
[2016-08-04] MEDS: DOXEPIN 10 MG CAP PO SCH (20:01)
[2016-08-04 21:01] VITALS: BP 140/72; PULSE 72
[2016-08-04] MEDS: morphine 2 MG INJ IV PRN (23:02)
[2016-08-05] MEDS: DEXAMETHASONE 4 MG/ML 1 ML INJ IV SCH ×4 (00:18→18:13)
[2016-08-05] MEDS: PANTOPRAZOLE 40 MG INJ IV SCH (05:51)
[2016-08-05] MEDS ORDERED: LORAZEPAM 2 MG INJ IV PRN (08:00)
[2016-08-05] MEDS ORDERED: DEXAMETHASONE 10 MG/ML 1 ML INJ IV ONE (08:00)
--- NOTE | 2016-08-05 08:12 | PN ---
DATE: 08/04/2016 ORTHOPEDIC SURGERY PROGRESS NOTE SUBJECTIVE: The patient is a pleasant 75-year-old female who is currently postop day #3 status post partial corpectomy and anterior cervical diskectomy from C4 to C7. She has had no acute overnight events. She is still having some dysphagia. She reports that the dysphagia has somewhat improved a s she is now able to swallow her saliva after a dose of IV steroids. She continues to report that h er headaches have improved in nature. She is currently satting well on room air. OBJECTIVE: VITAL SIGNS: Her T-max is 98.6, her heart rate ranges from 84 to 97, her blood pressure ranges from 111 to 140/56 to 73. She is satting 98 to 100% on room air. GENERAL: She is alert and oriented x3 in no acute distress. CERVICAL SPINE: Her anterior incision is clean, dry, and intact with no erythema or drainage. EXTREMITIES: She has 5/5 strength in her bilateral deltoids, biceps, triceps, wrist extensors, wris t flexors, interossei. Her lower extremities remain 5/5 intact in the tibia, gastrocnemius, soleus, and EHL. She has some mild numbness globally in her bilateral hands which has been stable since pr ior to the procedure. LABORATORY VALUES: Her H and H is stable at 10/32.3. Her electrolytes are within normal limits. ASSESSMENT AND PLAN: The patient is a 75-year-old female postop day #3 status post anterior cervica l diskectomy with partial corpectomy from C4 to C7. PLAN: 1. The patient's Tate has been discontinued. She will continue to be out of [facility]. We will continue to manage her pain with IV Tylenol and IV morphine 1 mg q. 4 to 6 hour s p.r.n. pain. 2. We will continue to keep her on D10 half normal saline with potassium until she follows her [facility] evaluation. 3. We will have the speech evaluation team once again evaluate her today to see if she can be clear ed to start a clear liquid diet. 4. We will have her continue work with physical therapy to ambulate. Of note, physical therapist n otes that her strength has significantly improved and she is able to ambulate 30 to 40 feet without difficulty. Dictated By: SILVIA ENGLAND/SAUL Conf#: [id number] [facility]#: [id number]
[2016-08-05 08:38] VITALS: BP 157/71; RESP 19
[2016-08-05] MEDS: DULOXETINE 30 MG CAP DR PO SCH (08:38)
[2016-08-05] MEDS: SERTRALINE 100 MG TAB PO SCH ×2 (08:38→21:00)
[2016-08-05] MEDS: PREGABALIN 100 MG CAP PO SCH ×2 (08:38→21:00)
[2016-08-05] MEDS: SALMETEROL/FLUTICASONE 250/50 INHA INH SCH ×2 (08:38→21:37)
[2016-08-05] MEDS: ESTROGENS CONJUGATED 0.3 MG TAB PO SCH (08:38)
--- NOTE | 2016-08-05 08:55 | PN ---
DATE: 08/02/2016 ORTHOPEDIC SPINE PROGRESS NOTE SUBJECTIVE: The patient is a 75 -year-old female postop day #1 status post anterior cervical diskectomy and partial corpectomy from C4 to C7 for cervical spondylytic myelopathy. She was admitted to the ICU overnight in order to ensure appropriate respiratory status. She had no acute overnight events. She has been breathing comfortably on room air and 2 liters of oxygen in nasal cannula. 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 She does report some issues with swallowing. A speech pathology consult has been placed. She otherwise has no complaints. OBJECTIVE: She is afebrile. Vital signs are stable. PHYSICAL EXAMINATION GENERAL: She is alert and oriented x3, in no acute distress. Her incision is clean, dry and intact. She has intact strength 5/5 in her bilateral deltoid, biceps, triceps, wrist extensors, wrist flexors. She has some persistent numbness and tingling in bilateral hands which has been persistent since before surgery. She complains primarily of pain over the anterior incision site. She otherwise has no significant complaints. Her H and H is stable with hemoglobin of 10.4. Her Hemovac has put out 80 mL in the past 24 hours. ASSESSMENT/PLAN: The patient is a 75 -year-old female currently postop day #1 status post C4 anterior cervical diskectomy with partial corpectomy and fusion with instrumentation. PLAN: 1. At this time, we will have her work with physical therapy. 2. We will have her work with speech pathology and start her on a clear diet. Will obtain a swallow eval. 3. We will discontinue the COAL MILL OPERATOR as this is causing her some nausea and try to place her on a p.o. pain management once she is able to tolerate p.o. We will continue to monitor speech replacement. Dictated By: SILVIA ENGLAND/SAUL Conf#: [id number] DID#: [id number]
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
[2016-08-05] MEDS: [UNRECOGNIZED DRUG - OTHER] IV SCH ×3 (16:30)
[2016-08-05] MEDS: POTASSIUM CHLORIDE IV SCH ×3 (16:30)
[2016-08-05] MEDS: DEXTROSE IV SCH ×3 (16:30)
--- NOTE | 2016-08-05 18:59 | CONS ---
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 She reports today that she feels some improvement in her dysphagia. She had a cervical x-ray per formed yesterday. She currently reports that she is breathing comfortably. She reports that her bi lateral shoulder pain has improved significantly since the surgery. She reports of intermittent abd ominal discomfort and some intermittent headaches. She, otherwise, had no acute overnight events. She is currently being evaluated by our speech pathology team in order to clear her for a clear liqu id diet. She has currently been n.p.o. and is receiving IV fluids. OBJECTIVE: VITAL SIGNS: Afebrile. Vital signs stable. GENERAL: She is alert and oriented x3, in no acute distress. SPINE: The patient's anterior midline incision is clean, dry, and intact without erythema or eviden ce of drainage. She has been wearing a Mora J collar. She is neurovascularly intact. IMAGING: X-rays, 2 views of the cervical spine, were obtained and reviewed by me. X-rays show some moderate prevertebral soft tissue swelling most prominently anterior to the C5 vertebral body. The hardware appears to be in good overall alignment. Her C4-5 spondylolisthesis reduced. She has osman dence of an anterior cervical diskectomy with partial corpectomy from C4-C7. There is no evidence o f any hardware failure. ASSESSMENT AND PLAN: A 75-year-old female currently postoperative day #4 status post partial corpec devan and diskectomy from C4 to C7 for cervical spondylitic myelopathy. PLAN: 1. We will have speech therapy continue to evaluate the patient. She will likely receive a swallow study either today or tomorrow to see if we can have her cleared to start a clear liquid diet. If she does not pass the swallow study, we will place the PEG tube for nutrition. 2. We will have her continue to work with physical therapy for gait training. She has been accepte d to our acute rehab facility. 3. We will continue to perform neural and neurovascular checks. 4. We will continue to monitor the patient closely during this inpatient admission with the help of the medicine service. Dictated By: SILVIA ENGLAND/SAUL Conf#: [id number] DID#: [id number]
[2016-08-05 19:05] VITALS: BP 156/76; RESP 17
[2016-08-05] MEDS: DOXEPIN 10 MG CAP PO SCH (21:00)
[2016-08-05] MEDS: ATORVASTATIN 10 MG TAB PO SCH (21:00)
[2016-08-05] MEDS: LORAZEPAM 2 MG INJ IV PRN (22:54)
[2016-08-06] MEDS: DEXAMETHASONE 4 MG/ML 1 ML INJ IV SCH ×2 (00:11→06:20)
[2016-08-06] MEDS: DEXTROSE IV SCH ×6 (04:48→17:56)
[2016-08-06] MEDS: [UNRECOGNIZED DRUG - OTHER] IV SCH ×6 (04:48→17:56)
[2016-08-06] MEDS: POTASSIUM CHLORIDE IV SCH ×6 (04:48→17:56)
[2016-08-06] MEDS: PANTOPRAZOLE 40 MG INJ IV SCH (06:20)
[2016-08-06] MEDS: ESTROGENS CONJUGATED 0.3 MG TAB PO SCH (09:00)
[2016-08-06] MEDS: DULOXETINE 30 MG CAP DR PO SCH (09:00)
[2016-08-06] MEDS: PREGABALIN 100 MG CAP PO SCH ×2 (09:00→21:00)
[2016-08-06] MEDS: SERTRALINE 100 MG TAB PO SCH ×2 (09:00→21:00)
[2016-08-06 09:20] VITALS: BP 155/75; RESP 18
[2016-08-06] MEDS: SALMETEROL/FLUTICASONE 250/50 INHA INH SCH ×2 (09:36→21:11)
--- NOTE | 2016-08-06 11:04 | CONS ---
DATE OF ADMISSION: 08/01/2016 DATE OF CONSULTATION: HISTORY OF PRESENT ILLNESS: The patient is a 75-year-old female postop day #5 status post C4 to C7 dissected anterior cervical diskectomy with partial corpectomy for cervical spondylitic myelopathy. She had no acute overnight events. She is scheduled to undergo a swallow study today. The speech team is still following the patient. If she passes this study today, we will begin a diet. If she is not able to pass the study today, we may place a PEG tube. She had no acute overnight events. She is breathing comfortably on room air. Her pain continues to improve and is currently under control with IV Tylenol and morphine. OBJECTIVE: Patient has been afebrile, her vital signs are stable. PHYSICAL EXAMINATION GENERAL: Alert and oriented x3, no acute distress. SPINE: The her incision is clean, dry and intact. VITAL SIGNS: Stable. ASSESSMENT AND PLAN: A 75-year-old female postop day #5 status post C4 to C7 anterior cervical diskectomy with partial corpectomy for cervical spondylitic myelopathy. PLAN: 1. Patient will continue to ambulate and walk with physical therapy and will be likely transferred to acute rehab once she is able to tolerate a regular diet. 2. For her dysphagia, we will have her a swallow study today and if she passes this was started on a diet. If not, we will place a PEG tube temporarily. 3. We will continue to have the medical team help us with of the patient. Dictated By: SILVIA ENGLAND/SAUL Conf#: [id number] DID#: [id number] DEBBI
[2016-08-06] MEDS ORDERED: BARIUM SULFATE 135 ML (E-Z HD) PO ONE (13:29)
[2016-08-06] MEDS: morphine 2 MG INJ IV PRN (16:58)
[2016-08-06] MEDS: PROCHLORPERAZINE 10 MG INJ IV PRN (17:06)
[2016-08-06] MEDS ORDERED: LIDOCAINE 1% (MPF) 5 ML VIAL SC ONE (18:00)
--- NOTE | 2016-08-06 18:24 | RADRPT ---
PROCEDURE: Video-fluoroscopy swallowing study. CLINICAL INDICATION: Dysphagia. TECHNIQUE: Fluoroscopic guided video swallowing study was done in conjunction with the speech ther apist. The study was confined to the oral, pharyngeal, and cervical phases of the swallowing mechani sm. 2.4 minutes of fluoroscopy time was used. COMPARISON: No prior study is available for comparison. FINDINGS: There is penetration without evidence of aspiration during swallowing. There has been anterior cerv ical fusion with plate and screws. IMPRESSION: 1. Penetration without aspiration. Prior cervical spine surgery. 2. Please refer to the speech therapist's recommendations for future feedings. RPTAT: QQ .Maurilio Perez MD, MD Date Time Electronically viewed and signed by .Maurilio Perez MD, on 08/06/2016 18:24 .R/
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
[2016-08-06 19:10] VITALS: BP 154/67; RESP 20
[2016-08-06] MEDS: ATORVASTATIN 10 MG TAB PO SCH (21:00)
[2016-08-06] MEDS: DOXEPIN 10 MG CAP PO SCH (21:00)
[2016-08-07] MEDS: POTASSIUM CHLORIDE IV SCH ×3 (01:49)
[2016-08-07] MEDS: [UNRECOGNIZED DRUG - OTHER] IV SCH ×3 (01:49)
[2016-08-07] MEDS: DEXTROSE IV SCH ×3 (01:49)
[2016-08-07] MEDS: LORAZEPAM 2 MG INJ IV PRN ×2 (01:50→22:00)
[2016-08-07] MEDS: ACETAMINOPHEN 1000MG/100ML IV 100 ML IVPB PRN (02:34)
[2016-08-07] MEDS: PANTOPRAZOLE 40 MG INJ IV SCH (06:15)
[2016-08-07 07:59] VITALS: BP 159/73; RESP 18
[2016-08-07] MEDS: PREGABALIN 100 MG CAP PO SCH ×2 (09:00→20:33)
[2016-08-07] MEDS: SERTRALINE 100 MG TAB PO SCH ×2 (09:00→20:34)
[2016-08-07] MEDS: DULOXETINE 30 MG CAP DR PO SCH (09:00)
[2016-08-07] MEDS: ESTROGENS CONJUGATED 0.3 MG TAB PO SCH (09:00)
[2016-08-07] MEDS: SALMETEROL/FLUTICASONE 250/50 INHA INH SCH ×2 (09:16→21:02)
[2016-08-07] MEDS: morphine 2 MG INJ IV PRN ×3 (13:18→21:02)
[2016-08-07] MEDS ORDERED: FAT EMULSION 20% 250 ML IV SCH ×2 (16:00)
[2016-08-07] MEDS ORDERED: TPN 1,000 ML IV SCH (16:00)
--- NOTE | 2016-08-07 17:32 | RADRPT ---
PROCEDURE: XR Chest. CLINICAL INDICATION: Check PICC line position. TECHNIQUE: Single frontal view. COMPARISON: 08/01/2016. FINDINGS: There is a right arm PICC line with the tip in the lower superior vena cava. The lungs are clear. The heart size is normal. There is no pleural effusion or pneumothorax. Contrast is present in the colon from a prior study. IMPRESSION: 1. Satisfactory position of right arm PICC line. 2. Otherwise unremarkable chest radiograph. RPTAT: QQ .Maurilio Perez MD, MD Date Time Electronically viewed and signed by .Maurilio Perez MD, MD on 08/07/2016 17:31 .R/
--- NOTE | 2016-08-07 17:37 | RADRPT ---
PROCEDURE: Ultrasound guidance for placement of needle in right upper extremity vein. CLINICAL INDICATION: Venous access. TECHNIQUE: Limited sonography of the right upper extremity was performed. Ultrasound images were recorded and stored in the patient's medical record. COMPARISON: None. FINDINGS: The ultrasound images demonstrate a patent right upper extremity vein. The PICC line was inserted b y the PICC line nurse. IMPRESSION: 1. Ultrasound guidance for a needle placement in a right upper extremity vein. 2. The visualized right upper extremity vein is patent. RPTAT: QQ .Maurilio Perez MD, MD Date Time Electronically viewed and signed by .Maurilio Perez MD, MD on 08/07/2016 17:37 .R/
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
[2016-08-07] MEDS: DOXEPIN 10 MG CAP PO SCH (20:33)
[2016-08-07] MEDS: ATORVASTATIN 10 MG TAB PO SCH (20:33)
[2016-08-07 21:02] VITALS: BP 150/80; RESP 20
--- NOTE | 2016-08-08 08:16 | PN ---
DATE: 08/07/2016 SUBJECTIVE: The patient is a pleasant 75-year-old female who is currently postop day #6 status post C4-C7 anterior cervical diskectomy with partial corpectomy for cervical spondylitic myelopathy. Sh dudley had no acute overnight events. She reports that she feels her swallowing is slowly improving. Ho wever, she did not pass the swallow study yesterday and is still deemed an aspiration risk. Therefo re, the patient will get a PICC line today and be placed on TPN. The speech pathology team currentl y does not recommend a PEG tube as they feel they have seen considerable improvement in her swallowi ng and feel that she will pass in the next week. She otherwise had no acute overnight events. She has been doing well with physical therapy. OBJECTIVE: VITAL SIGNS: T-max is 98.6, her heart rate ranges from 70 to 92. Her blood pressure ranges from 15 5 to 157/67 to 75, she is satting 96% to 98% on room air. GENERAL: She is alert and oriented x3, no acute distress. SPINE EXAMINATION: Her anterior cervical incision is clean, dry and intact with no evidence of eryt reanto or drainage. NEUROLOGIC: She is intact other than some mild numbness in both hands in no particular nerve root d istribution, which she reports she had prior to the surgery. She reports the numbness in her hands appears to be improving slowly. ASSESSMENT: The patient is a 75-year-old female postop day #6 status post anterior cervical diskect willem and partial corpectomy from C4 to C7 PLAN: 1. We will have the patient get a PICC line today and start her on TPN given that she has been unab le to pass a swallow study. 2. We will obtain a nutrition consult to ensure that the patient has adequate nutrition. 3. We will likely transfer the patient to acute rehab either today or tomorrow after she receives h er PICC line and begins TPN. 4. We will continue to have the patient work with physical therapy for strengthening and gait train ing. 5. We will continue to have the medical team help us with the management of this patient. Dictated By: SILVIA ENGLAND/SAUL Conf#: [id number] DID#: [id number]
== END 2016-08-07 22:00 | DRG 472 ==
LOC: REC 08-01 05:32 → MS1 08-01 12:58 → ICU 08-01 14:49 → MS1 08-02 11:25
PROVIDERS: ADMIT Orthopaedic Surgery; ATTEND Orthopaedic Surgery
PROC: 0RT30ZZ Resection of Cervical Vertebral Disc, Open Approach (ICD-10-PCS; 2016-08-01)
PROC: 0RG20A0 Fusion of 2 or more Cervical Vertebral Joints with Interbody Fusion Device, Anterior Approach, Anterior Column, Open Approach (ICD-10-PCS; principal; 2016-08-01 07:30)
PROC: 02HV33Z Insertion of Infusion Device into Superior Vena Cava, Percutaneous Approach (ICD-10-PCS; 2016-08-07)
DX: M50.021 Cervical disc disorder at C4-C5 level with myelopathy (principal); G95.89 Other specified diseases of spinal cord; R13.10 Dysphagia, unspecified; N32.81 Overactive bladder; M48.02 Spinal stenosis, cervical region; J45.20 Mild intermittent asthma, uncomplicated; E78.5 Hyperlipidemia, unspecified; K21.9 Gastro-esophageal reflux disease without esophagitis; R20.0 Anesthesia of skin; G25.81 Restless legs syndrome
CPT/HCPCS: 36569; 71010; 72050; 72141; 74230; 76937; 80048; 80053; 81003; 85014; 85018; 85025; 85610; 85730; 86850; 86870; 86900; 86901; 87081; 92526; 92610; 92611; 93005; 97116; 97162; 97530; C1713; C1769; C9113; J0131; J0690; J0780; J1100; J1200; J1644; J2060; J2270; J2405; J2765; J3010; J3480; J7042; J7999; L0174

== ENCOUNTER 2016-08-05 15:58 | Inpatient (IN) | payer MEDICARE, OTHER ==
[~2016-08-05] VITALS: Ht 154.9 cm; Wt 78.0 kg
[~2016-08-05 15:58] MED LIST: DOXE10CA PO; DULO60CA6 PO; IBUP-1542 PO; LOVA20TA PO; LYRI100 PO; OMEP20CA16 PO; PREM3 PO; SERT-165 PO
[2016-08-07 23:00] VITALS: BP 142/71; PULSE 78; RESP 18; Ht 154.9 cm; Wt 78.0 kg
[2016-08-07] MEDS ORDERED: ACETAMINOPHEN 1000MG/100ML IV 100 ML IVPB PRN (23:15)
[2016-08-07] MEDS ORDERED: ONDANSETRON 4 MG INJ IV PRN (23:15)
[2016-08-07] MEDS ORDERED: PROCHLORPERAZINE 10 MG INJ IV PRN (23:15)
[2016-08-07] MEDS ORDERED: DIPHENHYDRAMINE 50 MG INJ IV PRN (23:15)
[2016-08-07] MEDS ORDERED: NALOXONE (0.4 MG/ML) INJ IV PRN (23:15)
[2016-08-07] MEDS ORDERED: ACETAMINOPHEN 325 MG TAB PO PRN (23:15)
[2016-08-07] MEDS ORDERED: NACL 0.9% 3 ML SYG IV SCH (23:30)
[2016-08-07] MEDS ORDERED: TPN 1,000 ML IV SCH (23:30)
[2016-08-08] MEDS: ACCU-CHEK XX SCH ×4 (00:15→18:04)
[2016-08-08] MEDS ORDERED: LACTULOSE 30ML CUP PO PRN (04:30)
[2016-08-08] MEDS ORDERED: BISACODYL 10 MG SUPP PR PRN (04:30)
[2016-08-08] MEDS: morphine 2 MG INJ IV PRN ×2 (05:59→17:12)
[2016-08-08] MEDS: PANTOPRAZOLE 40 MG INJ IV SCH (05:59)
[2016-08-08 06:53] LABS: ADD SCAN DIFF NO
[2016-08-08 06:57] LABS: BASOPHILS % 0.2 % (0.0-2.0); EOSINOPHILS # 0.2 10^3/ul (0.0-0.5); HEMATOCRIT 35.1 % (37.0-47.0); HEMOGLOBIN 11.1 g/dl (12.0-16.0); LYMPHOCYTES % 23.7 % (15.0-51.0); MEAN CORPUSCULAR HEMOGLOBIN 26.1 pg (29.0-33.0); MEAN CORPUSCULAR HGB CONC 31.6 g/dl (32.0-37.0); MEAN CORPUSCULAR VOLUME 82.6 fl (82.0-101.0); MEAN PLATELET VOLUME 9.4 fl (7.4-10.4); MONOCYTE # 0.3 10^3/ul (0.3-0.9); MONOCYTES % 7.8 % (0.0-11.0); NEUTROPHIL # 2.7 10^3/ul (1.6-7.5); NEUTROPHILS % 62.9 % (39.0-77.0); PLATELET COUNT 295 10^3/UL (140-415); RED BLOOD COUNT 4.25 10^6/ul (4.20-5.40); RED CELL DISTRIBUTION WIDTH 14.2 % (11.5-14.5); WHITE BLOOD COUNT 4.2 10^3/ul (4.8-10.8)
[2016-08-08 07:30] VITALS: BP 146/66; RESP 18
[2016-08-08 09:00] LABS: ALBUMIN 4.2 g/dl (3.3-4.9); ALBUMIN/GLOBULIN RATIO 1.61; CREATININE 0.52 mg/dl (0.44-1.00); POTASSIUM 3.4 mmol/L (3.5-5.1); TOTAL PROTEIN 6.8 g/dl (6.1-8.1)
[2016-08-08] MEDS: SERTRALINE 100 MG TAB PO SCH ×3 (09:00→21:51)
[2016-08-08] MEDS: ESTROGENS CONJUGATED 0.3 MG TAB PO SCH ×2 (09:00→11:36)
[2016-08-08] MEDS: PREGABALIN 25 MG CAP PO SCH ×3 (09:00→21:51)
[2016-08-08] MEDS: DULOXETINE 30 MG CAP DR PO SCH (09:00)
[2016-08-08] MEDS: SALMETEROL/FLUTICASONE 250/50 INHA INH SCH ×2 (09:10→21:50)
[2016-08-08] MEDS: TPN 1,000 ML IV SCH (10:22)
--- NOTE | 2016-08-08 11:30 | HP ---
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 CHIEF COMPLAINT: Impaired mobility, neck pain, difficulty swallowing. HISTORY OF PRESENT ILLNESS: This is a 75-year-old female with a past medical history significant for asthma, dysthymia, hyperlipidemia, restless leg syndrome , overactive bladder, who initially presented to neurosurgery physician with progressively worsening bilateral neck and shoulder pain and progressive difficulty with gait, balance and manual dexterity for the past six months. She had an MRI of her cervical spine which showed cervical stenosis C4 to C7 with myelomalacia and C4 to C5 anterolisthesis. She was recommended surgical intervention and went to the OR on 08/01/2016. She underwent anterior cervical C4 to C5 diskectomy, partial cervical C4 vertebrectomy, partial cervical C5 vertebrectomy and anterior cervical C4 to C5 instrumented fusion, anterior cervical C5 to C6 diskectomy, partial cervical C6 vertebrectomy, anterior cervical C5 to C6 instrumented fusion, anterior cervical C6 to C7 diskectomy, partial cervical C7 vertebrectomy, anterior cervical C6 to C7 instrumented fusion by Dr. Oquendo and Dr. Velasco. No reported intraoperative complications. Postoperative course was complicated by acute postoperative pain as well as dysphagia. The patient underwent a modified barium swallow evaluation and was recommended n.p.o. for the time being and currently she is on TPN. The patient did work with physical and occupational therapy as well and currently she is requiring moderate assistance for her ADLs. She is requiring minimal assistance for transfers and gait 70 feet with a walker. Due to the patient's ongoing medical comorbidities and significant overall functional decline from her baseline independent status, the patient was recommended to benefit from acute inpatient rehabilitation. PAST MEDICAL AND SURGICAL HISTORY: As stated in history of present illness. Also GERD. Other surgeries include bilateral knee replacements. FAMILY HISTORY: Reports noncontributory. SOCIAL HISTORY: Denies current toxic habits. The patient lives alone in a 1- story home with 1 step to enter. The patient reports she was previously independent for all functional mobility and self care ADLs and used a walker for gait. She did have multiple falls prior to admission with worsening balance. MEDICATIONS ON ADMISSION: Reviewed in electronic medical records, includin. Lipitor. 2. Doxepin. 3. TPN 4. Advair. 5. Zoloft. 6. Lyrica. 7. Cymbalta. 8. Premarin. 9. Protonix. 10. Ativan as needed. 11. Compazine as needed. 12. Napoleon 5/325 mg 1 to 2 tablets 4 hours as needed. 13. Morphine 1 mg IV 3 hours as needed. 14. Zofran as needed. 15. Tylenol as needed. 16. Benadryl as needed. ALLERGIES: 1. SULFA. 2. CODEINE. 3. MEPERIDINE. LABORATORIES AND IMAGING: Reviewed in the electronic medical records. Labs today show hemoglobin 11.1, hematocrit 35.1. WBC 4.2, platelets 295. Sodium 138, potassium 3.4, BUN 17, creatinine 0.52. LFTs appear to be within normal limits. REVIEW OF SYSTEMS: CONSTITUTIONAL: Denies fevers, chills. EYES: No new visual changes. EARS, NOSE AND THROAT: Significant for dysphagia. RESPIRATORY: Denies shortness of breath or cough. CARDIOVASCULAR: No chest pain, no palpitations. GENITOURINARY: No dysuria, no hematuria. GASTROINTESTINAL: Denies abdominal pain, nausea or vomiting. Reports previously having diarrhea. NEUROLOGIC: Denies any new focal weakness or new paresthesias. She reports paresthesias in the bilateral hands, which was present prior to surgery and overall somewhat improved since surgery. MUSCULOSKELETAL: Has moderate pain in her neck. SKIN: No itching. No rashes. PSYCHIATRIC: Significant for history of anxiety and depression. REVIEW OF SYSTEMS: Otherwise negative. PHYSICAL EXAMINATION: VITAL SIGNS: Blood pressure 146/66, heart rate 73, temperature 97.7 Fahrenheit , respiratory rate 18. GENERAL: The patient is well-nourished, well-developed, awake, alert, in no acute distress. HEENT: Normocephalic, atraumatic. Mucous membranes moist. Extraocular muscles are intact. Sclera anicteric. NECK: Hard cervical collar in place. Surgical site not examined, with dressing in place, but per pictures taken on admission, the anterior cervical incision site looks clean and intact. RESPIRATORY: Symmetrical air entry bilaterally. No crackles or wheezing. Respirations are nonlabored. CARDIOVASCULAR: Regular rate and rhythm, audible S1, S2. No distal edema. ABDOMEN: Soft, nontender, bowel sounds present. No masses palpated. EXTREMITIES: Calves soft, nontender. No cyanosis. SKIN: Per pictures, the surgical incision site looks clean and dry. There is a blanchable redness in the bilateral heels as well as the lower and mid back and sacrococcyx area. PSYCHIATRIC: Affect and mood are appropriate. NEUROLOGIC AND MUSCULOSKELETAL: Awake, alert, in no acute distress, oriented x3 , follows simple commands. Strength is overall 4 to 4+/5 in the bilateral upper and lower extremities. She reports sensation intact to light touch. She does have positive bilateral Hoffmans sign bilaterally. IMPRESSION: 1. Status post C4 to C7 anterior cervical diskectomy with partial colpectomy for cervical spondylytic myelopathy. 2. Impaired mobility, gait and balance. 3. Impaired self-care and activities of daily living. 4. History of falls. 5. Acute postoperative pain. 6. Dysphagia. 7. Anemia. 8. Hypokalemia. 9. Hyperlipidemia. 10. Gastroesophageal reflux disease. 11. Overactive bladder. 12. Restless leg syndrome. 13. Asthma. 14. History of dysthymia. PLAN 1. The patient will be admitted for inpatient comprehensive interdisciplinary rehabilitation to address impairments and medical conditions listed above while assessing equipment needs and compensatory strategies with coordinated interdisciplinary services that will include physical, occupational and speech therapies and close monitoring and treatment with 24-hour rehabilitation nursing. The patient is anticipated to be able to tolerate 3 hours daily for at least 5/7 days per week of therapies and the program will be performed under the direction of the solar electric installer. 2. Begin physical therapy for bed mobility, transfers, balance training, gait training with assistive devices as needed. 3. Begin occupational therapy for activities of daily living, functional transfers, adaptive equipment evaluation, and patient education. 4. Speech therapy for dysphagia treatment. Currently maintain the patient on n.p.o. except for medications as per speech therapy recommendations, and she is on total parenteral nutrition as well. Monitor electrolytes. 5. Rehabilitation nursing to provide the patient education regarding current medications as they relate to medical illness. Monitor pain. Monitor bowel and bladder programs and administer those programs and reinforce them with therapies. 6. Dr. Ortega and associates to follow for management of medical comorbidities. 7. For hyperlipidemia, continue on statin. 8. For gastroesophageal reflux disease, continue on Protonix. 9. For acute postoperative pain, we will closely monitor her pain levels and adjust further as needed. For now, continue on the p.r.n. Napoleon and morphine. 10. For history of asthma, continue on Advair. Monitor oxygen saturations. 11. For history of dysthymia, currently mood appears appropriate. Continue current medical management. 12. For anemia, continue to monitor hemoglobin and hematocrit. 13. For hypokalemia, to replete. 14. The patient is status post cervical spine surgery. Maintain cervical spine precautions, [place] J collar at all times per spine surgeon instructions. Monitor surgical site for signs/symptoms of infection and provide surgical site care. REHABILITATION GOALS: To improve bed mobility, transfers, gait and self-care ADLs to modified independent level with adaptive equipment and assistive devices as needed. Improve swallowing and have the patient be able to meet nutritional needs by mouth. ESTIMATED LENGTH OF STAY: Approximately 10 days. Her case will be discussed with the weekly interdisciplinary conference. Anticipated disposition is to home. PROGNOSIS: At the current time, this inpatient hospital rehabilitation stay is medically necessary to achieve important health and functional goals. The patient requires frequent physician visits, 24-hour rehabilitation nursing and a coordinated intensive rehabilitation program as described above to address complex medical ,nursing and rehabilitation needs. The patient has a good prognosis for benefiting from this program and returning to home and community. REHABILITATION PHYSICIAN POST-ADMISSION ASSESSMENT REVIEW: I have had the opportunity to examine the patient within 24 hours of admission and have reviewed the preadmission assessment and find it consistent with my examination and evaluation of the patient. I confirm that this patient is appropriate for admission and treatment in this inpatient rehabilitation hospital, needs intense interdisciplinary rehabilitation care and is expected to achieve meaningful goals within a reasonable period of time that are consistent with the planned discharge disposition as noted above. Dictated By: SELVIN JAVIER MD, RA/SAUL Conf#: [id number] DID#: [id number] DEBBI
--- NOTE | 2016-08-08 14:20 | PN ---
Date/Time of Note Date/Time of Note DATE: 08/08/16 TIME: 14:16 Assessment/Plan VTE Prophylaxis VTE Prophylaxis Intervention: SCD's Lines/Catheters IV Catheter Type (from Nrs): PICC Line Central line still needed: Yes Urinary Cath still in place: No Assessment/Plan Problems: (1) Aftercare following surgery of the musculoskeletal system Status: Acute Comment: We are handicapped by the retropharyngeal swelling that has interfered with her ability to swallow. This may be improving. We can have speech therapy reevaluate her in the morning and they follow their recommendations regarding diet (2) Gastroesophageal reflux disease Status: Chronic Comment: Stable Qualifiers: Esophagitis presence: without esophagitis Qualified Code: K21.9 - Gastroesophageal reflux disease without esophagitis (3) Hyperlipidemia Status: Chronic Comment: Resume statin therapy when taking p.o. Qualifiers: Hyperlipidemia type: pure hypercholesterolemia Qualified Code: E78.00 - Pure hypercholesterolemia (4) Asthma, mild intermittent Status: Chronic Comment: Adequately controlled Qualifiers: Asthma complication type: uncomplicated Qualified Code: J45.20 - Mild intermittent asthma without complication (5) Overactive bladder Status: Chronic Comment: Noted and adequately controlled Subjective 24 Hr Interval Summary Free Text/Dictation Charming 75-year-old female in bed with hard cervical collar. She reports she is swallowing better. Constitutional: no complaints Respiratory: no complaints Cardiovascular: no complaints Gastrointestinal: no complaints Genitourinary: no complaints Exam/Review of Systems Vital Signs Vitals Vital Signs Date Time Temp Pulse Resp B/P Pulse Ox O2 Delivery O2 Flow Rate FiO2 08/08/16 07:30 97.7 73 18 146/66 96 08/07/16 23:00 Room Air Exam Constitutional: alert, oriented Neck: non-tender, supple Respiratory: clear to auscultation, normal air movement Cardiovascular: nl pulses, regular rate and rhythm Gastrointestinal: nl liver, spleen, non-tender, soft Results Result Diagram: 08/08/16 0605 08/08/16 0605 Results 24 hrs Laboratory Tests Test 08/08/16 00:22 08/08/16 06:05 08/08/16 06:23 08/08/16 10:02 Bedside Glucose 107 127 112 White Blood Count 4.2 #L Red Blood Count 4.25 Hemoglobin 11.1 L Hematocrit 35.1 L Mean Corpuscular Volume 82.6 Mean Corpuscular Hemoglobin 26.1 L Mean Corpuscular Hemoglobin Concent 31.6 L Red Cell Distribution Width 14.2 Platelet Count 295 Mean Platelet Volume 9.4 Neutrophils % 62.9 Lymphocytes % 23.7 Monocytes % 7.8 Eosinophils % 4.0 Basophils % 0.2 Nucleated Red Blood Cells % 0.0 Neutrophils # 2.7 Lymphocytes # 1.0 Monocytes # 0.3 Eosinophils # 0.2 Basophils # 0.0 Nucleated Red Blood Cells # 0.0 Sodium Level 138 Potassium Level 3.4 L Chloride Level 103 Carbon Dioxide Level 27 Anion Gap 11 Blood Urea Nitrogen 17 Creatinine 0.52 Glucose Level 112 Calcium Level 9.0 Total Bilirubin 0.0 L Direct Bilirubin 0.00 Indirect Bilirubin 0.0 Aspartate Amino Transf (AST/SGOT) 38 Alanine Aminotransferase (ALT/SGPT) 47 Alkaline Phosphatase 70 Total Protein 6.8 Albumin 4.2 Globulin 2.60 Albumin/Globulin Ratio 1.61 Medications Medications Current Medications Prochlorperazine (Compazine Inj) 5 mg Q4H PRN IV NAUSEA AND/OR VOMITING; Start 08/07/16 at 23:15 IV Flush (NS 10 ml) 10 ml PRN PRN IV FLUSH LINE; Start 08/07/16 at 23:30 Salmeterol Xinafoate/ Fluticasone (Advair 250/50 Diskus) 1 inh BID INH Last administered on 08/08/16 09:10; Admin Dose 1 INH; Start 08/08/16 at 09:00 Sertraline HCl (Zoloft) 100 mg BID PO Last administered on 08/08/16 11:36; Admin Dose 100 MG; Start 08/08/16 at 09:00 Acetaminophen/ Hydrocodone Bitart ([place] (5/325)) 1 tab Q4H PRN PO PAIN; Start 08/07/16 at 23:15 Acetaminophen/ Hydrocodone Bitart ([place] (5/325)) 2 tab Q4H PRN PO PAIN; Start 08/07/16 at 23:15 Morphine Sulfate (morphine) 1 mg Q3H PRN IV PAIN Last administered on 05:59; Admin Dose 1 MG; Start 08/07/16 at 23:15 Naloxone HCl (Narcan) 0.2 mg Q2M PRN IV DECREASED REPIRATORY RATE; Start at 23:15 Ondansetron HCl (Zofran Inj) 4 mg Q6H PRN IV NAUSEA AND/OR VOMITING; Start at 23:15 Pantoprazole (Protonix Iv) 40 mg DAILY@06 IV Last administered on 08/08/16 05: 59; Admin Dose 40 MG; Start 08/08/16 at 06:00 Pregabalin (Lyrica) 100 mg BID PO Last administered on 08/08/16 11:36; Admin Dose 100 MG; Start 08/08/16 at 09:00 Acetaminophen 650 mg 650 mg Q4H PRN PO PAIN AND OR ELEVATED TEMP; Start at 23:15 Acetaminophen (Ofirmev 1000mg/ 100ml Iv) 100 ml @ 400 mls/hr Q6H PRN IVPB PAIN AND OR ELEVATED TEMP Last administered on 08/08/16 11:39; Admin Dose 400 MLS/HR; Start 08/07/16 at 23:15 Atorvastatin Calcium (Lipitor) 10 mg DAILY@21 PO ; Start 08/08/16 at 21:00 Diphenhydramine HCl (Benadryl) 25 mg Q6H PRN IV ALLERGIC REACTION; Start at 23:15 Doxepin HCl (Sinequan) 10 mg HS PO ; Start 08/08/16 at 21:00 Duloxetine HCl (Cymbalta) 60 mg DAILY PO ; Start 08/08/16 at 09:00 Estrogens Conjugated 0.3 mg 0.3 mg DAILY PO Last administered on 08/08/16 11: 36; Admin Dose 0.3 MG; Start 08/08/16 at 09:00 Fat Emulsion Intravenous (Liposyn Ii 20%) 250 ml @ 20.833 mls/ hr DAILY@16 IV ; Start 08/08/16 at 16:00 Diagnostic Test (Pha) (Accu-Chek) 1 ea Q6 XX Last administered on 08/08/16 12: 05; Admin Dose 1 EA; Start 08/08/16 at 00:00; Stop 08/08/16 at 18:01 Diagnostic Test (Pha) 1 ea 1 ea Q12 XX ; Start 08/09/16 at 09:00 Total Parenteral Nutrition (Tpn) 1,000 ml @ 60 mls/hr [id number] IV Last administered on 6/22/17at 10:22; Admin Dose 60 MLS/HR; Start 08/08/16 at 10:00 Lorazepam (Ativan) 0.5 mg Q4H PRN IV ANXIETY; Start 08/08/16 at 02:30 Bisacodyl (Dulcolax Supp) 10 mg DAILY PRN [place] CONSTIPATION; Start 08/08/16 at 04 :30 Lactulose (Enulose) 20 gm DAILY PRN PO CONSTIPATION; Start 08/08/16 at 04:30 MARQUIS GAMA MD Aug 08, 2016 14:20
[2016-08-08] MEDS: FAT EMULSION 20% 250 ML IV SCH (17:11)
[2016-08-08 19:38] VITALS: BP 141/67; RESP 18
[2016-08-08] MEDS: ATORVASTATIN 10 MG TAB PO SCH (21:51)
[2016-08-08] MEDS: DOXEPIN 10 MG CAP PO SCH (21:51)
[2016-08-09] MEDS: morphine 2 MG INJ IV PRN (01:48)
[2016-08-09] MEDS: TPN 1,000 ML IV SCH ×2 (04:44→20:41)
[2016-08-09 05:31] LABS: ADD UMIC NO; UR ASCORBIC ACID NEGATIVE (NEGATIVE); UR BILIRUBIN (Dip) NEGATIVE (NEGATIVE); UR BLOOD (Dip) NEGATIVE (NEGATIVE); UR CLARITY CLEAR (CLEAR); UR COLOR STRAW (YELLOW); UR GLUCOSE (Dip) NEGATIVE (NEGATIVE); UR KETONES (Dip) NEGATIVE (NEGATIVE); UR LEUKOCYTE ESTERASE (Dip) NEGATIVE Leu/ul (NEGATIVE); UR NITRITE (Dip) NEGATIVE (NEGATIVE); UR SPECIFIC GRAVITY (Dip) 1.009 (1.003-1.030); UR TOTAL PROTEIN (Dip) NEGATIVE (NEGATIVE); UR UROBILINOGEN (Dip) NEGATIVE (NEGATIVE)
[2016-08-09] MEDS: PANTOPRAZOLE 40 MG INJ IV SCH (06:55)
[2016-08-09 08:00] VITALS: BP 118/79; RESP 18
[2016-08-09 08:53] LABS: CALCIUM 9.1 mg/dl (8.4-10.2); CREATININE 0.52 mg/dl (0.44-1.00); MAGNESIUM 2.2 mg/dl (1.7-2.5); PHOSPHORUS 4.2 mg/dl (2.5-4.9); POTASSIUM 3.7 mmol/L (3.5-5.1)
[2016-08-09] MEDS: ACCU-CHEK XX SCH ×2 (08:53→21:00)
[2016-08-09] MEDS: SERTRALINE 100 MG TAB PO SCH ×2 (08:54→20:42)
[2016-08-09] MEDS: SALMETEROL/FLUTICASONE 250/50 INHA INH SCH ×2 (08:54→20:42)
[2016-08-09] MEDS: ESTROGENS CONJUGATED 0.3 MG TAB PO SCH (08:55)
[2016-08-09] MEDS: PREGABALIN 25 MG CAP PO SCH ×2 (08:55→20:42)
[2016-08-09] MEDS: DULOXETINE 30 MG CAP DR PO SCH (08:55)
--- NOTE | 2016-08-09 11:08 | PN ---
Date/Time of Note Date/Time of Note DATE: 08/09/16 TIME: 11:04 Assessment/Plan VTE Prophylaxis VTE Prophylaxis Intervention: SCD's, other Lines/Catheters IV Catheter Type (from Nrsg): PICC Line Central line still needed: Yes (TPN) Urinary Cath still in place: No Assessment/Plan Assessment/Plan 1. Status post C4-C7 anterior cervical diskectomy/vertebrectomy/ fusion for cervical spondylytic myelopathy, with impaired mobility/gait/ADLs. Continue PT/ OT. Gait progressing, now min assist to CGA up to 125ft with FWW. 2. Acute postoperative pain. Pain controlled. Continue pain regimen. 3. Dysphagia. Continue ST. Maintain aspiration precautions. Continue TPN. 4. Anemia. Monitor hemoglobin/hematocrit. 5. Hyperlipidemia. Continue statin. 6. GERD. Continue PPI. 7. Overactive bladder. Continue bladder program. 8. Restless leg syndrome. 9. Asthma. Stable. Continue breathing treatments as needed. 10. History of dysthymia. Continue medical management. Mood stable. 11. Diarrhea. Will send for testing of C diff. Subjective 24 Hr Interval Summary Free Text/Dictation Rehab progress note Subjective: Reports mild neck pain currently. ROS: Denies chest pain, no shortness of breath, no abdominal pain, no nausea, no vomiting, no chills. +Diarrhea. Exam/Review of Systems Vital Signs Vitals Vital Signs Date Time Temp Pulse Resp B/P Pulse Ox O2 Delivery O2 Flow Rate FiO2 08/09/16 08:00 98.0 78 18 118/79 96 08/07/16 23:00 Room Air Intake and Output 08/08/16 08/08/16 08/09/16 15:00 23:00 07:00 Intake Total 1100 ml 720 ml 830 ml Output Total 501 ml Balance 1100 ml 720 ml 329 ml Exam General: Awake, alert, no acute distress Neck: Cervical collar in place CV: Regular rate, s1s2 Lungs clear to auscultation, no wheezing Abdomen soft, nontender, +bowel sounds Extremities without cyanosis, no new swelling Neuro: No new focal changes. Follows simple commands. Results Result Diagram: 08/08/16 0605 08/09/16 0609 Results 24 hrs Laboratory Tests Test 08/08/16 17:53 08/09/16 04:30 08/09/16 06:09 08/09/16 08:52 Bedside Glucose 102 160 Urine Color STRAW Urine Clarity CLEAR Urine pH 7.0 Urine Specific [place] 1.009 Urine Ketones NEGATIVE Urine Nitrite NEGATIVE Urine Bilirubin NEGATIVE Urine Urobilinogen NEGATIVE Urine Leukocyte Esterase NEGATIVE Urine Hemoglobin NEGATIVE Urine Glucose NEGATIVE Urine Total Protein NEGATIVE Sodium Level 137 Potassium Level 3.7 Chloride Level 103 Carbon Dioxide Level 26 Anion Gap 12 Blood Urea Nitrogen 20 Creatinine 0.52 Glucose Level 108 Calcium Level 9.1 Phosphorus Level 4.2 Magnesium Level 2.2 Medications Medications Current Medications Prochlorperazine (Compazine Inj) 5 mg Q4H PRN IV NAUSEA AND/OR VOMITING; Start 08/07/16 at 23:15 IV Flush (NS 10 ml) 10 ml PRN PRN IV FLUSH LINE; Start 08/07/16 at 23:30 Salmeterol Xinafoate/ Fluticasone (Advair 250/50 Diskus) 1 inh BID INH Last administered on 08/09/16 08:54; Admin Dose 1 INH; Start 08/08/16 at 09:00 Sertraline HCl (Zoloft) 100 mg BID PO Last administered on 08/09/16 08:54; Admin Dose 100 MG; Start 08/08/16 at 09:00 Acetaminophen/ Hydrocodone Bitart ([place] (5/325)) 1 tab Q4H PRN PO PAIN; Start 08/07/16 at 23:15 Acetaminophen/ Hydrocodone Bitart ([place] (5/325)) 2 tab Q4H PRN PO PAIN; Start 08/07/16 at 23:15 Morphine Sulfate (morphine) 1 mg Q3H PRN IV PAIN Last administered on 01:48; Admin Dose 1 MG; Start 08/07/16 at 23:15 Naloxone HCl (Narcan) 0.2 mg Q2M PRN IV DECREASED REPIRATORY RATE; Start at 23:15 Ondansetron HCl (Zofran Inj) 4 mg Q6H PRN IV NAUSEA AND/OR VOMITING; Start at 23:15 Pantoprazole (Protonix Iv) 40 mg DAILY@06 IV Last administered on 08/09/16 06: 55; Admin Dose 40 MG; Start 08/08/16 at 06:00 Pregabalin (Lyrica) 100 mg BID PO Last administered on 08/09/16 08:55; Admin Dose 100 MG; Start 08/08/16 at 09:00 Acetaminophen 650 mg 650 mg Q4H PRN PO PAIN AND OR ELEVATED TEMP; Start at 23:15 Acetaminophen (Ofirmev 1000mg/ 100ml Iv) 100 ml @ 400 mls/hr Q6H PRN IVPB PAIN AND OR ELEVATED TEMP Last administered on 08/08/16 11:39; Admin Dose 400 MLS/HR; Start 08/07/16 at 23:15 Atorvastatin Calcium (Lipitor) 10 mg DAILY@21 PO Last administered on 21:51; Admin Dose 10 MG; Start 08/08/16 at 21:00 Diphenhydramine HCl (Benadryl) 25 mg Q6H PRN IV ALLERGIC REACTION; Start at 23:15 Doxepin HCl (Sinequan) 10 mg HS PO Last administered on 08/08/16 21:51; Admin Dose 10 MG; Start 08/08/16 at 21:00 Duloxetine HCl (Cymbalta) 60 mg DAILY PO Last administered on 08/09/16 08:55; Admin Dose 60 MG; Start 08/08/16 at 09:00 Estrogens Conjugated 0.3 mg 0.3 mg DAILY PO Last administered on 08/09/16 08: 55; Admin Dose 0.3 MG; Start 08/08/16 at 09:00 Fat Emulsion Intravenous (Liposyn Ii 20%) 250 ml @ 20.833 mls/ hr DAILY@16 IV Last administered on 08/08/16 17:11; Admin Dose 20.833 MLS/HR; Start 08/08/16 at 16:00 Diagnostic Test (Pha) 1 ea 1 ea Q12 XX Last administered on 08/09/16 08:53; Admin Dose 1 EA; Start 08/09/16 at 09:00 Total Parenteral Nutrition (Tpn) 1,000 ml @ 60 mls/hr [id number] IV Last administered on 08/09/16 04:44; Admin Dose 60 MLS/HR; Start 08/08/16 at 10:00 Lorazepam (Ativan) 0.5 mg Q4H PRN IV ANXIETY; Start 08/08/16 at 02:30 Bisacodyl (Dulcolax Supp) 10 mg DAILY PRN [place] CONSTIPATION; Start 08/08/16 at 04 :30 Lactulose (Enulose) 20 gm DAILY PRN PO CONSTIPATION; Start 08/08/16 at 04:30 SELVIN JAVIER Aug 09, 2016 11:08
--- NOTE | 2016-08-09 13:53 | PN ---
Date/Time of Note Date/Time of Note DATE: 08/09/16 TIME: 13:50 Assessment/Plan VTE Prophylaxis VTE Prophylaxis Intervention: heparin Lines/Catheters IV Catheter Type (from [facility]): PICC Line Central line still needed: Yes Urinary Cath still in place: No Assessment/Plan Problems: (1) Aftercare following surgery of the musculoskeletal system Status: Acute Comment: Improving nicely postoperatively. Her rehabilitation is actually progressing at a faster pace than had originally been expected by this observer. (2) Asthma, mild intermittent Status: Chronic Comment: Asthma is under control and quiescent Qualifiers: Asthma complication type: uncomplicated Qualified Code: J45.20 - Mild intermittent asthma without complication (3) Hyperlipidemia Status: Chronic Comment: Stable on medical therapy Qualifiers: Hyperlipidemia type: pure hypercholesterolemia Qualified Code: E78.00 - Pure hypercholesterolemia (4) Status post cervical spinal fusion Status: Acute Comment: Her swallowing difficulties resolving nicely. She is scheduled for formal swallowing evaluation in the next few days. Dietary has cleared her for starting on pured and thick liquids. I am in agreement entirely and the patient has progressed well without complications. Subjective 24 Hr Interval Summary Free Text/Dictation Patient much more active walking the wisdom using a front wheeled walker with the assistance of staff. Constitutional: no complaints Eyes: no complaints ENT: other (Now able to swallow. This is being done somewhat carefully under the guidance of dietitian with the agreement of the physicians and myself) Respiratory: no complaints Cardiovascular: no complaints Gastrointestinal: no complaints Exam/Review of Systems Vital Signs Vitals Vital Signs Date Time Temp Pulse Resp B/P Pulse Ox O2 Delivery O2 Flow Rate FiO2 08/09/16 08:00 98.0 78 18 118/79 96 08/07/16 23:00 Room Air Intake and Output 08/08/16 08/08/16 08/09/16 15:00 23:00 07:00 Intake Total 1100 ml 720 ml 830 ml Output Total 501 ml Balance 1100 ml 720 ml 329 ml Exam Constitutional: alert, oriented Neck: non-tender, supple Respiratory: clear to auscultation, normal air movement Cardiovascular: nl pulses, regular rate and rhythm Gastrointestinal: nl liver, spleen, non-tender, soft Results Result Diagram: 08/08/16 0605 08/09/16 0609 Results 24 hrs Laboratory Tests Test 08/08/16 17:53 08/09/16 04:30 08/09/16 06:09 08/09/16 08:52 Bedside Glucose 102 160 Urine Color STRAW Urine Clarity CLEAR Urine pH 7.0 Urine Specific [place] 1.009 Urine Ketones NEGATIVE Urine Nitrite NEGATIVE Urine Bilirubin NEGATIVE Urine Urobilinogen NEGATIVE Urine Leukocyte Esterase NEGATIVE Urine Hemoglobin NEGATIVE Urine Glucose NEGATIVE Urine Total Protein NEGATIVE Sodium Level 137 Potassium Level 3.7 Chloride Level 103 Carbon Dioxide Level 26 Anion Gap 12 Blood Urea Nitrogen 20 Creatinine 0.52 Glucose Level 108 Calcium Level 9.1 Phosphorus Level 4.2 Magnesium Level 2.2 Medications Medications Current Medications Prochlorperazine (Compazine Inj) 5 mg Q4H PRN IV NAUSEA AND/OR VOMITING; Start 08/07/16 at 23:15 IV Flush (NS 10 ml) 10 ml PRN PRN IV FLUSH LINE; Start 08/07/16 at 23:30 Salmeterol Xinafoate/ Fluticasone (Advair 250/50 Diskus) 1 inh BID INH Last administered on 08/09/16 08:54; Admin Dose 1 INH; Start 08/08/16 at 09:00 Sertraline HCl (Zoloft) 100 mg BID PO Last administered on 08/09/16 08:54; Admin Dose 100 MG; Start 08/08/16 at 09:00 Acetaminophen/ Hydrocodone Bitart ([place] (5/325)) 1 tab Q4H PRN PO PAIN; Start 08/07/16 at 23:15 Acetaminophen/ Hydrocodone Bitart ([place] (5/325)) 2 tab Q4H PRN PO PAIN; Start 08/07/16 at 23:15 Morphine Sulfate (morphine) 1 mg Q3H PRN IV PAIN Last administered on 01:48; Admin Dose 1 MG; Start 08/07/16 at 23:15 Naloxone HCl (Narcan) 0.2 mg Q2M PRN IV DECREASED REPIRATORY RATE; Start at 23:15 Ondansetron HCl (Zofran Inj) 4 mg Q6H PRN IV NAUSEA AND/OR VOMITING; Start at 23:15 Pantoprazole (Protonix Iv) 40 mg DAILY@06 IV Last administered on 08/09/16 06: 55; Admin Dose 40 MG; Start 08/08/16 at 06:00 Pregabalin (Lyrica) 100 mg BID PO Last administered on 08/09/16 08:55; Admin Dose 100 MG; Start 08/08/16 at 09:00 Acetaminophen 650 mg 650 mg Q4H PRN PO PAIN AND OR ELEVATED TEMP; Start at 23:15 Acetaminophen (Ofirmev 1000mg/ 100ml Iv) 100 ml @ 400 mls/hr Q6H PRN IVPB PAIN AND OR ELEVATED TEMP Last administered on 08/08/16 11:39; Admin Dose 400 MLS/HR; Start 08/07/16 at 23:15 Atorvastatin Calcium (Lipitor) 10 mg DAILY@21 PO Last administered on 21:51; Admin Dose 10 MG; Start 08/08/16 at 21:00 Diphenhydramine HCl (Benadryl) 25 mg Q6H PRN IV ALLERGIC REACTION; Start at 23:15 Doxepin HCl (Sinequan) 10 mg HS PO Last administered on 08/08/16 21:51; Admin Dose 10 MG; Start 08/08/16 at 21:00 Duloxetine HCl (Cymbalta) 60 mg DAILY PO Last administered on 08/09/16 08:55; Admin Dose 60 MG; Start 08/08/16 at 09:00 Estrogens Conjugated 0.3 mg 0.3 mg DAILY PO Last administered on 08/09/16 08: 55; Admin Dose 0.3 MG; Start 08/08/16 at 09:00 Fat Emulsion Intravenous (Liposyn Ii 20%) 250 ml @ 20.833 mls/ hr DAILY@16 IV Last administered on 08/08/16 17:11; Admin Dose 20.833 MLS/HR; Start 08/08/16 at 16:00 Diagnostic Test (Pha) 1 ea 1 ea Q12 XX Last administered on 08/09/16 08:53; Admin Dose 1 EA; Start 08/09/16 at 09:00 Total Parenteral Nutrition (Tpn) 1,000 ml @ 60 mls/hr [id number] IV Last administered on 08/09/16 04:44; Admin Dose 60 MLS/HR; Start 08/08/16 at 10:00 Lorazepam (Ativan) 0.5 mg Q4H PRN IV ANXIETY; Start 08/08/16 at 02:30 Bisacodyl (Dulcolax Supp) 10 mg DAILY PRN [place] CONSTIPATION; Start 08/08/16 at 04 :30 Lactulose (Enulose) 20 gm DAILY PRN PO CONSTIPATION; Start 08/08/16 at 04:30 MARQUIS GAMA MD Aug 09, 2016 13:53
[2016-08-09] MEDS: FAT EMULSION 20% 250 ML IV SCH ×2 (16:15→16:38)
[2016-08-09 20:00] VITALS: BP 112/64; RESP 18
[2016-08-09] MEDS: ATORVASTATIN 10 MG TAB PO SCH (20:42)
[2016-08-09] MEDS: DOXEPIN 10 MG CAP PO SCH (20:54)
[2016-08-10] MEDS: PANTOPRAZOLE 40 MG INJ IV SCH (06:48)
[2016-08-10 07:30] VITALS: BP 121/58; RESP 18
[2016-08-10 07:41] LABS: CALCIUM 9.1 mg/dl (8.4-10.2); CREATININE 0.51 mg/dl (0.44-1.00); MAGNESIUM 2.2 mg/dl (1.7-2.5); PHOSPHORUS 4.2 mg/dl (2.5-4.9); POTASSIUM 4.1 mmol/L (3.5-5.1)
[2016-08-10] MEDS: SALMETEROL/FLUTICASONE 250/50 INHA INH SCH ×2 (08:51→20:27)
[2016-08-10] MEDS: DULOXETINE 30 MG CAP DR PO SCH (08:52)
[2016-08-10] MEDS: PREGABALIN 25 MG CAP PO SCH ×2 (08:52→20:27)
[2016-08-10] MEDS: ESTROGENS CONJUGATED 0.3 MG TAB PO SCH (08:52)
[2016-08-10] MEDS: SERTRALINE 100 MG TAB PO SCH ×2 (08:53→20:28)
[2016-08-10] MEDS: ACCU-CHEK XX SCH ×2 (08:57→20:36)
--- NOTE | 2016-08-10 09:46 | PN ---
Date/Time of Note Date/Time of Note DATE: 08/10/16 TIME: 09:42 Assessment/Plan VTE Prophylaxis VTE Prophylaxis Intervention: SCD's, other Lines/Catheters IV Catheter Type (from Nrsg): PICC Line Central line still needed: Yes (TPN) Urinary Cath still in place: No Assessment/Plan Assessment/Plan 1. Status post C4 to C7 anterior cervical diskectomy/vertebrectomy/fusion for cervical spondylytic myelopathy, with impaired mobility/gait/ADLs. Continue spine precautions/cervical collar per spine surgeon. Continue PT/OT. Gait and transfers improving, now CGA. 2. Acute postoperative pain. Pain controlled. Continue pain regimen with prn norco and tylenol. 3. Dysphagia. Continue swallowing training with ST. Continue TPN. 4. Anemia. Monitor hemoglobin/hematocrit. 5. Hyperlipidemia. Continue statin. 6. GERD. Continue PPI. 7. Overactive bladder. Continue bladder program. 8. Restless leg syndrome. 9. Asthma. Stable. Continue breathing treatments as needed. 10. History of dysthymia. Mood stable. Continue medical management. Subjective 24 Hr Interval Summary Free Text/Dictation Rehab progress note Subjective: Reports moderate pain in her neck, controlled with pain medications. ROS: Denies cough, no chills, no abdominal pain, no shortness of breath, no nausea or vomiting, no chest pain. Denies further diarrhea in the past 24 hours. Exam/Review of Systems Vital Signs Vitals Vital Signs Date Time Temp Pulse Resp B/P Pulse Ox O2 Delivery O2 Flow Rate FiO2 08/09/16 20:00 98.6 92 18 112/64 96 08/07/16 23:00 Room Air Intake and Output 08/09/16 08/09/16 08/10/16 15:00 23:00 07:00 Intake Total 600 ml 1423 ml 1027 ml Output Total 200 ml 250 ml 1250 ml Balance 400 ml 1173 ml -223 ml Exam General: Awake, alert, no acute distress Neck: Cervical collar in place CV: Regular rate, s1s2 Lungs: Respirations nonlabored, no wheezing Abdomen soft, nontender, +bowel sounds Extremities without cyanosis, no new swelling Neuro: No new sensory changes. Antigravity strength BLE. . Results Result Diagram: 08/08/16 0605 08/10/16 0635 Results 24 hrs Laboratory Tests Test 08/09/16 21:07 08/10/16 06:35 08/10/16 08:57 Bedside Glucose 98 105 Sodium Level 137 Potassium Level 4.1 Chloride Level 103 Carbon Dioxide Level 28 Anion Gap 10 Blood Urea Nitrogen 21 H Creatinine 0.51 Glucose Level 113 Calcium Level 9.1 Phosphorus Level 4.2 Magnesium Level 2.2 Medications Medications Current Medications Prochlorperazine (Compazine Inj) 5 mg Q4H PRN IV NAUSEA AND/OR VOMITING; Start 08/07/16 at 23:15 IV Flush (NS 10 ml) 10 ml PRN PRN IV FLUSH LINE; Start 08/07/16 at 23:30 Salmeterol Xinafoate/ Fluticasone (Advair 250/50 Diskus) 1 inh BID INH Last administered on 08/10/16 08:51; Admin Dose 1 INH; Start 08/08/16 at 09:00 Sertraline HCl (Zoloft) 100 mg BID PO Last administered on 08/10/16 08:53; Admin Dose 100 MG; Start 08/08/16 at 09:00 Acetaminophen/ Hydrocodone Bitart ([place] (5/325)) 1 tab Q4H PRN PO PAIN; Start 08/07/16 at 23:15 Acetaminophen/ Hydrocodone Bitart ([place] (5/325)) 2 tab Q4H PRN PO PAIN; Start 08/07/16 at 23:15 Morphine Sulfate (morphine) 1 mg Q3H PRN IV PAIN Last administered on 01:48; Admin Dose 1 MG; Start 08/07/16 at 23:15 Naloxone HCl (Narcan) 0.2 mg Q2M PRN IV DECREASED REPIRATORY RATE; Start at 23:15 Ondansetron HCl (Zofran Inj) 4 mg Q6H PRN IV NAUSEA AND/OR VOMITING; Start at 23:15 Pantoprazole (Protonix Iv) 40 mg DAILY@06 IV Last administered on 08/10/16 06: 48; Admin Dose 40 MG; Start 08/08/16 at 06:00 Pregabalin (Lyrica) 100 mg BID PO Last administered on 08/10/16 08:52; Admin Dose 100 MG; Start 08/08/16 at 09:00 Acetaminophen 650 mg 650 mg Q4H PRN PO PAIN AND OR ELEVATED TEMP Last administered on 08/10/16 06:59; Admin Dose 650 MG; Start 08/07/16 at 23:15 Acetaminophen (Ofirmev 1000mg/ 100ml Iv) 100 ml @ 400 mls/hr Q6H PRN IVPB PAIN AND OR ELEVATED TEMP Last administered on 08/08/16 11:39; Admin Dose 400 MLS/HR; Start 08/07/16 at 23:15 Atorvastatin Calcium (Lipitor) 10 mg DAILY@21 PO Last administered on 20:42; Admin Dose 10 MG; Start 08/08/16 at 21:00 Diphenhydramine HCl (Benadryl) 25 mg Q6H PRN IV ALLERGIC REACTION; Start at 23:15 Doxepin HCl (Sinequan) 10 mg HS PO Last administered on 08/09/16 20:54; Admin Dose 10 MG; Start 08/08/16 at 21:00 Duloxetine HCl (Cymbalta) 60 mg DAILY PO Last administered on 08/10/16 08:52; Admin Dose 60 MG; Start 08/08/16 at 09:00 Estrogens Conjugated 0.3 mg 0.3 mg DAILY PO Last administered on 08/10/16 08: 52; Admin Dose 0.3 MG; Start 08/08/16 at 09:00 Fat Emulsion Intravenous (Liposyn Ii 20%) 250 ml @ 20.833 mls/ hr DAILY@16 IV Last administered on 08/09/16 16:38; Admin Dose 20.833 MLS/HR; Start 08/08/16 at 16:00 Diagnostic Test (Pha) 1 ea 1 ea Q12 XX Last administered on 08/10/16 08:57; Admin Dose 1 EA; Start 08/09/16 at 09:00 Total Parenteral Nutrition (Tpn) 1,000 ml @ 60 mls/hr [id number] IV Last administered on 08/09/16 20:41; Admin Dose 60 MLS/HR; Start 08/08/16 at 10:00 Lorazepam (Ativan) 0.5 mg Q4H PRN IV ANXIETY; Start 08/08/16 at 02:30 Bisacodyl (Dulcolax Supp) 10 mg DAILY PRN [place] CONSTIPATION; Start 08/08/16 at 04 :30 Lactulose (Enulose) 20 gm DAILY PRN PO CONSTIPATION; Start 08/08/16 at 04:30 SELVIN JAVIER Aug 10, 2016 09:46
[2016-08-10] MEDS: HYDROCODONE/APAP (5/325) TAB PO PRN ×3 (10:58→20:27)
[2016-08-10] MEDS: TPN 1,000 ML IV SCH ×2 (12:00→15:47)
[2016-08-10] MEDS: FAT EMULSION 20% 250 ML IV SCH (18:00)
[2016-08-10 19:33] VITALS: BP 121/80; RESP 19
[2016-08-10 20:00] VITALS: BP 130/66; RESP 18
[2016-08-10] MEDS: DOXEPIN 10 MG CAP PO SCH (20:28)
[2016-08-10] MEDS: ATORVASTATIN 10 MG TAB PO SCH (20:28)
[2016-08-10] MEDS: LORAZEPAM 2 MG INJ IV PRN (20:34)
[2016-08-11] MEDS: PANTOPRAZOLE 40 MG INJ IV SCH (06:26)
[2016-08-11 08:05] LABS: CREATININE 0.52 mg/dl (0.44-1.00); MAGNESIUM 2.1 mg/dl (1.7-2.5); PHOSPHORUS 4.3 mg/dl (2.5-4.9); POTASSIUM 4.3 mmol/L (3.5-5.1)
[2016-08-11 08:25] VITALS: BP 112/50; RESP 17
[2016-08-11] MEDS: SALMETEROL/FLUTICASONE 250/50 INHA INH SCH ×2 (09:01→21:01)
[2016-08-11] MEDS: SERTRALINE 100 MG TAB PO SCH ×2 (09:02→21:00)
[2016-08-11] MEDS: ESTROGENS CONJUGATED 0.3 MG TAB PO SCH (09:02)
[2016-08-11] MEDS: DULOXETINE 30 MG CAP DR PO SCH (09:02)
[2016-08-11] MEDS: PREGABALIN 25 MG CAP PO SCH ×2 (09:02→21:00)
[2016-08-11] MEDS: ACCU-CHEK XX SCH ×2 (09:07→21:01)
[2016-08-11] MEDS: TPN 1,000 ML IV SCH ×2 (10:45→10:46)
[2016-08-11] MEDS: HYDROCODONE/APAP (5/325) TAB PO PRN ×2 (11:00→17:08)
--- NOTE | 2016-08-11 11:19 | PN ---
Date/Time of Note Date/Time of Note DATE: 08/11/16 TIME: 11:17 Assessment/Plan VTE Prophylaxis VTE Prophylaxis Intervention: SCD's, other Lines/Catheters IV Catheter Type (from Nrsg): PICC Line Central line still needed: Yes (T{N) Urinary Cath still in place: No Assessment/Plan Assessment/Plan 1. Status post C4 to C7 anterior cervical diskectomy/vertebrectomy/fusion for cervical spondylytic myelopathy, with impaired mobility/gait/ADLs. Continue spine precautions/cervical collar per NSGY. Continue PT/OT. Contact guard assistance for grooming and upper body dressing, improving. 2. Acute postoperative pain. Pain controlled on prn norco and tylenol. Continue to monitor. 3. Dysphagia. On TPN. Continue ST. Maintain aspiration precautions. 4. Anemia. Monitor hemoglobin/hematocrit. 5. Hyperlipidemia. Continue statin. 6. GERD. Continue PPI. 7. Overactive bladder. Continue bladder program. 8. Restless leg syndrome. 9. Asthma. Stable. Continue breathing treatments as needed. 10. History of dysthymia. Mood stable. Continue medical management. Subjective 24 Hr Interval Summary Free Text/Dictation Rehab progress note Subjective: Reports mild pain in her neck, mostly from discomfort from cervical collar. ROS: Denies chest pain, no shortness of breath, no abdominal pain, no nausea, no vomiting. Exam/Review of Systems Vital Signs Vitals Vital Signs Date Time Temp Pulse Resp B/P Pulse Ox O2 Delivery O2 Flow Rate FiO2 08/11/16 08:25 98.0 77 17 112/50 96 08/07/16 23:00 Room Air Intake and Output 08/10/16 08/10/16 08/11/16 15:00 23:00 07:00 Intake Total 1080 ml 950 ml Balance 1080 ml 950 ml Exam General: Awake, alert, no acute distress Neck: Cervical collar in place CV: Regular rate, s1s2 audible Lungs: Clear to auscultation, no wheezing Abdomen soft, nontender, +bowel sounds Extremities without cyanosis, no new swelling Neuro: Antigravity strength BUE/BLE. No new sensory changes. Results Result Diagram: 08/08/16 0605 08/11/16 0610 Results 24 hrs Laboratory Tests Test 08/10/16 20:34 08/11/16 06:10 08/11/16 08:08 Bedside Glucose 109 107 Sodium Level 135 Potassium Level 4.3 Chloride Level 100 Carbon Dioxide Level 28 Anion Gap 11 Blood Urea Nitrogen 21 H Creatinine 0.52 Glucose Level 95 Calcium Level 9.0 Phosphorus Level 4.3 Magnesium Level 2.1 Medications Medications Current Medications Prochlorperazine (Compazine Inj) 5 mg Q4H PRN IV NAUSEA AND/OR VOMITING; Start 08/07/16 at 23:15 IV Flush (NS 10 ml) 10 ml PRN PRN IV FLUSH LINE; Start 08/07/16 at 23:30 Salmeterol Xinafoate/ Fluticasone (Advair 250/50 Diskus) 1 inh BID INH Last administered on 08/11/16 09:01; Admin Dose 1 INH; Start 08/08/16 at 09:00 Sertraline HCl (Zoloft) 100 mg BID PO Last administered on 08/11/16 09:02; Admin Dose 100 MG; Start 08/08/16 at 09:00 Acetaminophen/ Hydrocodone Bitart ([place] (5/325)) 1 tab Q4H PRN PO PAIN Last administered on 08/10/16 15:46; Admin Dose 1 TAB; Start 08/07/16 at 23:15 Acetaminophen/ Hydrocodone Bitart ([place] (5/325)) 2 tab Q4H PRN PO PAIN Last administered on 08/11/16 11:00; Admin Dose 2 TAB; Start 08/07/16 at 23:15 Morphine Sulfate (morphine) 1 mg Q3H PRN IV PAIN Last administered on 01:48; Admin Dose 1 MG; Start 08/07/16 at 23:15 Naloxone HCl (Narcan) 0.2 mg Q2M PRN IV DECREASED REPIRATORY RATE; Start at 23:15 Ondansetron HCl (Zofran Inj) 4 mg Q6H PRN IV NAUSEA AND/OR VOMITING; Start at 23:15 Pantoprazole (Protonix Iv) 40 mg DAILY@06 IV Last administered on 08/11/16 06: 26; Admin Dose 40 MG; Start 08/08/16 at 06:00 Pregabalin (Lyrica) 100 mg BID PO Last administered on 08/11/16 09:02; Admin Dose 100 MG; Start 08/08/16 at 09:00 Acetaminophen 650 mg 650 mg Q4H PRN PO PAIN AND OR ELEVATED TEMP Last administered on 08/10/16 06:59; Admin Dose 650 MG; Start 08/07/16 at 23:15 Acetaminophen (Ofirmev 1000mg/ 100ml Iv) 100 ml @ 400 mls/hr Q6H PRN IVPB PAIN AND OR ELEVATED TEMP Last administered on 08/08/16 11:39; Admin Dose 400 MLS/HR; Start 08/07/16 at 23:15 Atorvastatin Calcium (Lipitor) 10 mg DAILY@21 PO Last administered on 20:28; Admin Dose 10 MG; Start 08/08/16 at 21:00 Diphenhydramine HCl (Benadryl) 25 mg Q6H PRN IV ALLERGIC REACTION; Start at 23:15 Doxepin HCl (Sinequan) 10 mg HS PO Last administered on 08/10/16 20:28; Admin Dose 10 MG; Start 08/08/16 at 21:00 Duloxetine HCl (Cymbalta) 60 mg DAILY PO Last administered on 08/11/16 09:02; Admin Dose 60 MG; Start 08/08/16 at 09:00 Estrogens Conjugated 0.3 mg 0.3 mg DAILY PO Last administered on 08/11/16 09: 02; Admin Dose 0.3 MG; Start 08/08/16 at 09:00 Fat Emulsion Intravenous (Liposyn Ii 20%) 250 ml @ 20.833 mls/ hr DAILY@16 IV Last administered on 08/10/16 18:00; Admin Dose 20.833 MLS/HR; Start 08/08/16 at 16:00 Diagnostic Test (Pha) 1 ea 1 ea Q12 XX Last administered on 08/11/16 09:07; Admin Dose 1 EA; Start 08/09/16 at 09:00 Total Parenteral Nutrition (Tpn) 1,000 ml @ 60 mls/hr [id number] IV Last administered on 08/11/16 10:46; Admin Dose 60 MLS/HR; Start 08/08/16 at 10:00 Lorazepam (Ativan) 0.5 mg Q4H PRN IV ANXIETY Last administered on 08/10/16 20: 34; Admin Dose 0.5 MG; Start 08/08/16 at 02:30 Bisacodyl (Dulcolax Supp) 10 mg DAILY PRN [place] CONSTIPATION; Start 08/08/16 at 04 :30 Lactulose (Enulose) 20 gm DAILY PRN PO CONSTIPATION; Start 08/08/16 at 04:30 SELVIN JAVIER Aug 11, 2016 11:19
[2016-08-11] MEDS: FAT EMULSION 20% 250 ML IV SCH (16:02)
[2016-08-11 20:42] VITALS: BP 136/66; RESP 21
[2016-08-11] MEDS: DOXEPIN 10 MG CAP PO SCH (20:59)
[2016-08-11] MEDS: ATORVASTATIN 10 MG TAB PO SCH (20:59)
[2016-08-11] MEDS: morphine 2 MG INJ IV PRN (22:02)
[2016-08-12] MEDS: TPN 1,000 ML IV SCH ×2 (02:56→14:44)
[2016-08-12] MEDS: morphine 2 MG INJ IV PRN ×2 (05:21→09:19)
[2016-08-12] MEDS: PANTOPRAZOLE 40 MG INJ IV SCH (05:21)
[2016-08-12 07:30] VITALS: BP 117/57; RESP 18
[2016-08-12] MEDS: ACCU-CHEK XX SCH ×2 (09:14→21:00)
[2016-08-12] MEDS: SALMETEROL/FLUTICASONE 250/50 INHA INH SCH ×2 (09:17→19:56)
[2016-08-12] MEDS: SERTRALINE 100 MG TAB PO SCH ×2 (09:18→19:56)
[2016-08-12] MEDS: ESTROGENS CONJUGATED 0.3 MG TAB PO SCH (09:19)
[2016-08-12] MEDS: PREGABALIN 25 MG CAP PO SCH ×2 (09:19→19:56)
[2016-08-12] MEDS: DULOXETINE 30 MG CAP DR PO SCH (09:19)
--- NOTE | 2016-08-12 12:26 | CONS ---
Date/Time of Note Date/Time of Note DATE: 08/12/16 TIME: 12:23 Consult Date/Type/Reason Admit Date/Time Aug 07, 2016 at 22:11 Initial Consult Date Objective Vital Signs Date Time Temp Pulse Resp B/P Pulse Ox O2 Delivery O2 Flow Rate FiO2 08/11/16 20:42 98.0 85 21 136/66 96 Intake and Output 08/11/16 08/11/16 08/12/16 15:00 23:00 07:00 Intake Total 160 ml 1282.4 ml 1117.6 ml Balance 160 ml 1282.4 ml 1117.6 ml INTERDISCIPLINARY TEAM CONFERENCE BOWEL- Cont BLADDER-Cont SKIN- intact OT- DRESSING-min BATHING-min/mod TOILETING-min/mod PT- BED MOBILITY-mod TRANSFERS-mod/min AMBULATION-mod/min 125 feet A/P- Interdisciplinary team conference held today. Please see interdisciplinary sheet. Working toward d.cEve on 08/20 with post discharge follow up of physical therapy, occupational therapy. Results/Medications Result Diagram: 08/08/16 0605 08/11/16 0610 Results 24 hrs Laboratory Tests Test 08/11/16 20:58 08/12/16 09:14 Bedside Glucose 117 148 Medications Current Medications Prochlorperazine (Compazine Inj) 5 mg Q4H PRN IV NAUSEA AND/OR VOMITING; Start 08/07/16 at 23:15 IV Flush (NS 10 ml) 10 ml PRN PRN IV FLUSH LINE; Start 08/07/16 at 23:30 Salmeterol Xinafoate/ Fluticasone (Advair 250/50 Diskus) 1 inh BID INH Last administered on 08/12/16 09:17; Admin Dose 1 INH; Start 08/08/16 at 09:00 Sertraline HCl (Zoloft) 100 mg BID PO Last administered on 08/12/16 09:18; Admin Dose 100 MG; Start 08/08/16 at 09:00 Acetaminophen/ Hydrocodone Bitart ([place] (5/325)) 1 tab Q4H PRN PO PAIN Last administered on 08/10/16 15:46; Admin Dose 1 TAB; Start 08/07/16 at 23:15 Acetaminophen/ Hydrocodone Bitart ([place] (5/325)) 2 tab Q4H PRN PO PAIN Last administered on 08/11/16 17:08; Admin Dose 2 TAB; Start 08/07/16 at 23:15 Morphine Sulfate (morphine) 1 mg Q3H PRN IV PAIN Last administered on 09:19; Admin Dose 1 MG; Start 08/07/16 at 23:15 Naloxone HCl (Narcan) 0.2 mg Q2M PRN IV DECREASED REPIRATORY RATE; Start at 23:15 Ondansetron HCl (Zofran Inj) 4 mg Q6H PRN IV NAUSEA AND/OR VOMITING; Start at 23:15 Pantoprazole (Protonix Iv) 40 mg DAILY@06 IV Last administered on 08/12/16 05: 21; Admin Dose 40 MG; Start 08/08/16 at 06:00 Pregabalin (Lyrica) 100 mg BID PO Last administered on 08/12/16 09:19; Admin Dose 100 MG; Start 08/08/16 at 09:00 Acetaminophen 650 mg 650 mg Q4H PRN PO PAIN AND OR ELEVATED TEMP Last administered on 08/10/16 06:59; Admin Dose 650 MG; Start 08/07/16 at 23:15 Acetaminophen (Ofirmev 1000mg/ 100ml Iv) 100 ml @ 400 mls/hr Q6H PRN IVPB PAIN AND OR ELEVATED TEMP Last administered on 08/08/16 11:39; Admin Dose 400 MLS/HR; Start 08/07/16 at 23:15 Atorvastatin Calcium (Lipitor) 10 mg DAILY@21 PO Last administered on 20:59; Admin Dose 10 MG; Start 08/08/16 at 21:00 Diphenhydramine HCl (Benadryl) 25 mg Q6H PRN IV ALLERGIC REACTION; Start at 23:15 Doxepin HCl (Sinequan) 10 mg HS PO Last administered on 08/11/16 20:59; Admin Dose 10 MG; Start 08/08/16 at 21:00 Duloxetine HCl (Cymbalta) 60 mg DAILY PO Last administered on 08/12/16 09:19; Admin Dose 60 MG; Start 08/08/16 at 09:00 Estrogens Conjugated 0.3 mg 0.3 mg DAILY PO Last administered on 08/12/16 09: 19; Admin Dose 0.3 MG; Start 08/08/16 at 09:00 Fat Emulsion Intravenous (Liposyn Ii 20%) 250 ml @ 20.833 mls/ hr DAILY@16 IV Last administered on 08/11/16 16:02; Admin Dose 20.833 MLS/HR; Start 08/08/16 at 16:00 Diagnostic Test (Pha) 1 ea 1 ea Q12 XX Last administered on 08/12/16 09:14; Admin Dose 1 EA; Start 08/09/16 at 09:00 Total Parenteral Nutrition (Tpn) 1,000 ml @ 60 mls/hr [id number] IV Last administered on 08/12/16 02:56; Admin Dose 60 MLS/HR; Start 08/08/16 at 10:00 Lorazepam (Ativan) 0.5 mg Q4H PRN IV ANXIETY Last administered on 08/10/16 20: 34; Admin Dose 0.5 MG; Start 08/08/16 at 02:30 Bisacodyl (Dulcolax Supp) 10 mg DAILY PRN [place] CONSTIPATION; Start 08/08/16 at 04 :30 Lactulose (Enulose) 20 gm DAILY PRN PO CONSTIPATION; Start 08/08/16 at 04:30 NEVAEH QUEZADA MD Aug 12, 2016 12:26
--- NOTE | 2016-08-12 12:57 | PN ---
Date/Time of Note Date/Time of Note DATE: 08/12/16 TIME: 12:54 Assessment/Plan VTE Prophylaxis VTE Prophylaxis Intervention: LMWH Lines/Catheters IV Catheter Type (from Nrs): PICC Line Central line still needed: Yes Urinary Cath still in place: No Assessment/Plan Problems: (1) Aftercare following surgery of the musculoskeletal system Status: Acute Comment: She is recuperating quite nicely. Her issue remains the question about the swallowing continue treatment. Consider for swallowing study tomorrow (2) Asthma, mild intermittent Status: Chronic Comment: Well-controlled Qualifiers: Asthma complication type: uncomplicated Qualified Code: J45.20 - Mild intermittent asthma without complication (3) Restless leg syndrome Status: Chronic Comment: Noted and stable (4) Overactive bladder Status: Chronic Comment: Stable (5) Hyperlipidemia Status: Chronic Comment: Continue on statin therapy Qualifiers: Hyperlipidemia type: pure hypercholesterolemia Qualified Code: E78.00 - Pure hypercholesterolemia (6) Status post cervical spinal fusion Status: Acute Comment: As above. Continue with rehabilitative care Subjective 24 Hr Interval Summary Free Text/Dictation Patient reports she is doing okay and is actually taking soft food without incident Constitutional: no complaints Respiratory: no complaints Cardiovascular: no complaints Gastrointestinal: no complaints Exam/Review of Systems Vital Signs Vitals Vital Signs Date Time Temp Pulse Resp B/P Pulse Ox O2 Delivery O2 Flow Rate FiO2 08/12/16 07:30 98.0 72 18 117/57 97 Intake and Output 08/11/16 08/11/16 08/12/16 15:00 23:00 07:00 Intake Total 160 ml 1282.4 ml 1117.6 ml Balance 160 ml 1282.4 ml 1117.6 ml Exam Constitutional: alert, oriented Neck: non-tender, supple Respiratory: clear to auscultation, normal air movement Cardiovascular: nl pulses, regular rate and rhythm Results Result Diagram: 08/08/16 0605 08/11/16 0610 Results 24 hrs Laboratory Tests Test 08/11/16 20:58 08/12/16 09:14 Bedside Glucose 117 148 Medications Medications Current Medications Prochlorperazine (Compazine Inj) 5 mg Q4H PRN IV NAUSEA AND/OR VOMITING; Start 08/07/16 at 23:15 IV Flush (NS 10 ml) 10 ml PRN PRN IV FLUSH LINE; Start 08/07/16 at 23:30 Salmeterol Xinafoate/ Fluticasone (Advair 250/50 Diskus) 1 inh BID INH Last administered on 08/12/16 09:17; Admin Dose 1 INH; Start 08/08/16 at 09:00 Sertraline HCl (Zoloft) 100 mg BID PO Last administered on 08/12/16 09:18; Admin Dose 100 MG; Start 08/08/16 at 09:00 Acetaminophen/ Hydrocodone Bitart ([place] (5/325)) 1 tab Q4H PRN PO PAIN Last administered on 08/10/16 15:46; Admin Dose 1 TAB; Start 08/07/16 at 23:15 Acetaminophen/ Hydrocodone Bitart ([place] (5/325)) 2 tab Q4H PRN PO PAIN Last administered on 08/11/16 17:08; Admin Dose 2 TAB; Start 08/07/16 at 23:15 Morphine Sulfate (morphine) 1 mg Q3H PRN IV PAIN Last administered on 09:19; Admin Dose 1 MG; Start 08/07/16 at 23:15 Naloxone HCl (Narcan) 0.2 mg Q2M PRN IV DECREASED REPIRATORY RATE; Start at 23:15 Ondansetron HCl (Zofran Inj) 4 mg Q6H PRN IV NAUSEA AND/OR VOMITING; Start at 23:15 Pantoprazole (Protonix Iv) 40 mg DAILY@06 IV Last administered on 08/12/16 05: 21; Admin Dose 40 MG; Start 08/08/16 at 06:00 Pregabalin (Lyrica) 100 mg BID PO Last administered on 08/12/16 09:19; Admin Dose 100 MG; Start 08/08/16 at 09:00 Acetaminophen 650 mg 650 mg Q4H PRN PO PAIN AND OR ELEVATED TEMP Last administered on 08/10/16 06:59; Admin Dose 650 MG; Start 08/07/16 at 23:15 Acetaminophen (Ofirmev 1000mg/ 100ml Iv) 100 ml @ 400 mls/hr Q6H PRN IVPB PAIN AND OR ELEVATED TEMP Last administered on 08/08/16 11:39; Admin Dose 400 MLS/HR; Start 08/07/16 at 23:15 Atorvastatin Calcium (Lipitor) 10 mg DAILY@21 PO Last administered on 20:59; Admin Dose 10 MG; Start 08/08/16 at 21:00 Diphenhydramine HCl (Benadryl) 25 mg Q6H PRN IV ALLERGIC REACTION; Start at 23:15 Doxepin HCl (Sinequan) 10 mg HS PO Last administered on 08/11/16 20:59; Admin Dose 10 MG; Start 08/08/16 at 21:00 Duloxetine HCl (Cymbalta) 60 mg DAILY PO Last administered on 08/12/16 09:19; Admin Dose 60 MG; Start 08/08/16 at 09:00 Estrogens Conjugated 0.3 mg 0.3 mg DAILY PO Last administered on 08/12/16 09: 19; Admin Dose 0.3 MG; Start 08/08/16 at 09:00 Fat Emulsion Intravenous (Liposyn Ii 20%) 250 ml @ 20.833 mls/ hr DAILY@16 IV Last administered on 08/11/16 16:02; Admin Dose 20.833 MLS/HR; Start 08/08/16 at 16:00 Diagnostic Test (Pha) 1 ea 1 ea Q12 XX Last administered on 08/12/16 09:14; Admin Dose 1 EA; Start 08/09/16 at 09:00 Total Parenteral Nutrition (Tpn) 1,000 ml @ 60 mls/hr [id number] IV Last administered on 08/12/16 02:56; Admin Dose 60 MLS/HR; Start 08/08/16 at 10:00 Lorazepam (Ativan) 0.5 mg Q4H PRN IV ANXIETY Last administered on 08/10/16 20: 34; Admin Dose 0.5 MG; Start 08/08/16 at 02:30 Bisacodyl (Dulcolax Supp) 10 mg DAILY PRN [place] CONSTIPATION; Start 08/08/16 at 04 :30 Lactulose (Enulose) 20 gm DAILY PRN PO CONSTIPATION; Start 08/08/16 at 04:30 MARQUIS GAMA MD Aug 12, 2016 12:57
[2016-08-12] MEDS: AMOXICILLIN 500 MG CAP PO SCH ×2 (14:43→21:07)
[2016-08-12] MEDS: FAT EMULSION 20% 250 ML IV SCH (16:31)
[2016-08-12] MEDS: ATORVASTATIN 10 MG TAB PO SCH (19:56)
[2016-08-12] MEDS: DOXEPIN 10 MG CAP PO SCH (19:56)
[2016-08-12] MEDS: HYDROCODONE/APAP (5/325) TAB PO PRN (19:57)
[2016-08-12] MEDS: LORAZEPAM 2 MG INJ IV PRN (19:58)
[2016-08-12 20:00] VITALS: BP 125/64; RESP 18
[2016-08-13] MEDS: AMOXICILLIN 500 MG CAP PO SCH ×3 (05:35→21:58)
[2016-08-13] MEDS: PANTOPRAZOLE 40 MG INJ IV SCH (05:35)
[2016-08-13] MEDS: TPN 1,000 ML IV SCH (06:48)
[2016-08-13 07:40] VITALS: BP 113/61; RESP 18
[2016-08-13] MEDS: DULOXETINE 30 MG CAP DR PO SCH (08:15)
[2016-08-13] MEDS: ESTROGENS CONJUGATED 0.3 MG TAB PO SCH (08:15)
[2016-08-13] MEDS: SALMETEROL/FLUTICASONE 250/50 INHA INH SCH ×2 (08:15→20:08)
[2016-08-13] MEDS: SERTRALINE 100 MG TAB PO SCH ×2 (08:16→20:08)
[2016-08-13] MEDS: HYDROCODONE/APAP (5/325) TAB PO PRN ×3 (08:16→21:58)
[2016-08-13] MEDS: PREGABALIN 25 MG CAP PO SCH ×2 (08:16→20:09)
[2016-08-13] MEDS: ACCU-CHEK XX SCH ×2 (08:38→21:00)
--- NOTE | 2016-08-13 11:26 | CONS ---
Date/Time of Note Date/Time of Note DATE: 08/13/16 TIME: 11:26 Consult Date/Type/Reason Admit Date/Time Aug 07, 2016 at 22:11 Subjective Pain improving Objective pulm-cta min assist Vital Signs Date Time Temp Pulse Resp B/P Pulse Ox O2 Delivery O2 Flow Rate FiO2 08/13/16 07:40 98.1 72 18 113/61 98 Intake and Output 08/12/16 08/12/16 08/13/16 15:00 23:00 07:00 Intake Total 480 ml 691.25 ml 978.75 ml Balance 480 ml 691.25 ml 978.75 ml Results/Medications Result Diagram: 08/11/16 0610 Results 24 hrs Laboratory Tests Test 08/12/16 21:06 08/13/16 08:22 Bedside Glucose 108 109 Medications Current Medications Prochlorperazine (Compazine Inj) 5 mg Q4H PRN IV NAUSEA AND/OR VOMITING; Start 08/07/16 at 23:15 IV Flush (NS 10 ml) 10 ml PRN PRN IV FLUSH LINE; Start 08/07/16 at 23:30 Salmeterol Xinafoate/ Fluticasone (Advair 250/50 Diskus) 1 inh BID INH Last administered on 08/13/16 08:15; Admin Dose 1 INH; Start 08/08/16 at 09:00 Sertraline HCl (Zoloft) 100 mg BID PO Last administered on 08/13/16 08:16; Admin Dose 100 MG; Start 08/08/16 at 09:00 Acetaminophen/ Hydrocodone Bitart ([place] (5/325)) 1 tab Q4H PRN PO PAIN Last administered on 08/10/16 15:46; Admin Dose 1 TAB; Start 08/07/16 at 23:15 Acetaminophen/ Hydrocodone Bitart ([place] (5/325)) 2 tab Q4H PRN PO PAIN Last administered on 08/13/16 08:16; Admin Dose 2 TAB; Start 08/07/16 at 23:15 Morphine Sulfate (morphine) 1 mg Q3H PRN IV PAIN Last administered on 09:19; Admin Dose 1 MG; Start 08/07/16 at 23:15 Naloxone HCl (Narcan) 0.2 mg Q2M PRN IV DECREASED REPIRATORY RATE; Start at 23:15 Ondansetron HCl (Zofran Inj) 4 mg Q6H PRN IV NAUSEA AND/OR VOMITING; Start at 23:15 Pantoprazole (Protonix Iv) 40 mg DAILY@06 IV Last administered on 08/13/16 05: 35; Admin Dose 40 MG; Start 08/08/16 at 06:00 Pregabalin (Lyrica) 100 mg BID PO Last administered on 08/13/16 08:16; Admin Dose 100 MG; Start 08/08/16 at 09:00 Acetaminophen 650 mg 650 mg Q4H PRN PO PAIN AND OR ELEVATED TEMP Last administered on 08/10/16 06:59; Admin Dose 650 MG; Start 08/07/16 at 23:15 Acetaminophen (Ofirmev 1000mg/ 100ml Iv) 100 ml @ 400 mls/hr Q6H PRN IVPB PAIN AND OR ELEVATED TEMP Last administered on 08/08/16 11:39; Admin Dose 400 MLS/HR; Start 08/07/16 at 23:15 Atorvastatin Calcium (Lipitor) 10 mg DAILY@21 PO Last administered on 19:56; Admin Dose 10 MG; Start 08/08/16 at 21:00 Diphenhydramine HCl (Benadryl) 25 mg Q6H PRN IV ALLERGIC REACTION; Start at 23:15 Doxepin HCl (Sinequan) 10 mg HS PO Last administered on 08/12/16 19:56; Admin Dose 10 MG; Start 08/08/16 at 21:00 Duloxetine HCl (Cymbalta) 60 mg DAILY PO Last administered on 08/13/16 08:15; Admin Dose 60 MG; Start 08/08/16 at 09:00 Estrogens Conjugated 0.3 mg 0.3 mg DAILY PO Last administered on 08/13/16 08: 15; Admin Dose 0.3 MG; Start 08/08/16 at 09:00 Fat Emulsion Intravenous (Liposyn Ii 20%) 250 ml @ 20.833 mls/ hr DAILY@16 IV Last administered on 08/12/16 16:31; Admin Dose 20.833 MLS/HR; Start 08/08/16 at 16:00 Diagnostic Test (Pha) 1 ea 1 ea Q12 XX Last administered on 08/13/16 08:38; Admin Dose 1 EA; Start 08/09/16 at 09:00 Total Parenteral Nutrition (Tpn) 1,000 ml @ 60 mls/hr [id number] IV Last administered on 08/13/16 06:48; Admin Dose 60 MLS/HR; Start 08/08/16 at 10:00 Lorazepam (Ativan) 0.5 mg Q4H PRN IV ANXIETY Last administered on 08/12/16 19: 58; Admin Dose 0.5 MG; Start 08/08/16 at 02:30 Bisacodyl (Dulcolax Supp) 10 mg DAILY PRN [place] CONSTIPATION; Start 08/08/16 at 04 :30 Lactulose (Enulose) 20 gm DAILY PRN PO CONSTIPATION; Start 08/08/16 at 04:30 Amoxicillin (Amoxicillin) 500 mg Q8 PO Last administered on 08/13/16 05:35; Admin Dose 500 MG; Start 08/12/16 at 14:00; Stop 08/19/16 at 13:59 Assessment/Plan Additional Assessment/Plan Rehab- Cervical myelopathy-s/p surgery Steady progress with rehab Dysphagia- videofluoro scheduled GERD hyperlipdemia Functional Impact of Comorbidities: See improving function as pain decreasing NEVAEH QUEZADA MD Aug 13, 2016 11:26
[2016-08-13] MEDS: FAT EMULSION 20% 250 ML IV SCH (16:20)
[2016-08-13 20:00] VITALS: BP 127/58; RESP 18
[2016-08-13] MEDS: ATORVASTATIN 10 MG TAB PO SCH (20:07)
[2016-08-13] MEDS: DOXEPIN 10 MG CAP PO SCH (20:08)
[2016-08-13] MEDS: LORAZEPAM 0.5 MG TAB PO PRN (22:34)
[2016-08-14] MEDS: TPN 1,000 ML IV SCH (00:35)
[2016-08-14] MEDS: morphine 2 MG INJ IV PRN (00:55)
[2016-08-14] MEDS: PANTOPRAZOLE (EC) 40 MG TAB PO SCH (06:33)
[2016-08-14] MEDS: AMOXICILLIN 500 MG CAP PO SCH ×3 (06:33→22:48)
[2016-08-14 07:47] VITALS: BP 103/58; RESP 18
[2016-08-14] MEDS: DULOXETINE 30 MG CAP DR PO SCH (08:40)
[2016-08-14] MEDS: PREGABALIN 25 MG CAP PO SCH ×2 (08:40→20:28)
[2016-08-14] MEDS: SALMETEROL/FLUTICASONE 250/50 INHA INH SCH ×2 (08:40→20:29)
[2016-08-14] MEDS: HYDROCODONE/APAP (5/325) TAB PO PRN ×2 (08:41→20:29)
[2016-08-14] MEDS: SERTRALINE 100 MG TAB PO SCH ×2 (08:41→20:30)
[2016-08-14] MEDS: ACCU-CHEK XX SCH ×2 (08:43→20:36)
[2016-08-14 10:12] LABS: CALCIUM 8.4 mg/dl (8.4-10.2); CREATININE 0.54 mg/dl (0.44-1.00); MAGNESIUM 2.1 mg/dl (1.7-2.5); PHOSPHORUS 4.4 mg/dl (2.5-4.9); POTASSIUM 4.2 mmol/L (3.5-5.1)
[2016-08-14] MEDS: ESTROGENS CONJUGATED 0.3 MG TAB PO SCH (10:24)
--- NOTE | 2016-08-14 10:42 | CONS ---
Date/Time of Note Date/Time of Note DATE: 08/14/16 TIME: 10:32 Consult Date/Type/Reason Admit Date/Time Aug 07, 2016 at 22:11 Subjective Overall improved Objective Vital Signs Date Time Temp Pulse Resp B/P Pulse Ox O2 Delivery O2 Flow Rate FiO2 08/14/16 07:47 98.4 76 18 103/58 96 Intake and Output 08/13/16 08/13/16 08/14/16 15:00 23:00 07:00 Intake Total 960 ml 1372 ml 1008 ml Output Total 250 ml 450 ml Balance 710 ml 1372 ml 558 ml pulm-cta min assist Results/Medications Result Diagram: 08/14/16 0630 Results 24 hrs Laboratory Tests Test 08/13/16 22:04 08/14/16 06:30 08/14/16 08:39 Bedside Glucose 103 113 Sodium Level 135 Potassium Level 4.2 Chloride Level 102 Carbon Dioxide Level 28 Anion Gap 9 Blood Urea Nitrogen 30 H Creatinine 0.54 Glucose Level 88 Calcium Level 8.4 Phosphorus Level 4.4 Magnesium Level 2.1 Medications Current Medications Prochlorperazine (Compazine Inj) 5 mg Q4H PRN IV NAUSEA AND/OR VOMITING; Start 08/07/16 at 23:15 IV Flush (NS 10 ml) 10 ml PRN PRN IV FLUSH LINE; Start 08/07/16 at 23:30 Salmeterol Xinafoate/ Fluticasone (Advair 250/50 Diskus) 1 inh BID INH Last administered on 08/14/16 08:40; Admin Dose 1 INH; Start 08/08/16 at 09:00 Sertraline HCl (Zoloft) 100 mg BID PO Last administered on 08/14/16 08:41; Admin Dose 100 MG; Start 08/08/16 at 09:00 Acetaminophen/ Hydrocodone Bitart ([place] (5/325)) 1 tab Q4H PRN PO PAIN Last administered on 08/10/16 15:46; Admin Dose 1 TAB; Start 08/07/16 at 23:15 Acetaminophen/ Hydrocodone Bitart ([place] (5/325)) 2 tab Q4H PRN PO PAIN Last administered on 08/14/16 08:41; Admin Dose 2 TAB; Start 08/07/16 at 23:15 Morphine Sulfate (morphine) 1 mg Q3H PRN IV PAIN Last administered on 00:55; Admin Dose 1 MG; Start 08/07/16 at 23:15 Naloxone HCl (Narcan) 0.2 mg Q2M PRN IV DECREASED REPIRATORY RATE; Start at 23:15 Ondansetron HCl (Zofran Inj) 4 mg Q6H PRN IV NAUSEA AND/OR VOMITING Last administered on 08/14/16 01:02; Admin Dose 4 MG; Start 08/07/16 at 23:15 Pregabalin (Lyrica) 100 mg BID PO Last administered on 08/14/16 08:40; Admin Dose 100 MG; Start 08/08/16 at 09:00 Acetaminophen 650 mg 650 mg Q4H PRN PO PAIN AND OR ELEVATED TEMP Last administered on 08/10/16 06:59; Admin Dose 650 MG; Start 08/07/16 at 23:15 Acetaminophen (Ofirmev 1000mg/ 100ml Iv) 100 ml @ 400 mls/hr Q6H PRN IVPB PAIN AND OR ELEVATED TEMP Last administered on 08/08/16 11:39; Admin Dose 400 MLS/HR; Start 08/07/16 at 23:15 Atorvastatin Calcium (Lipitor) 10 mg DAILY@21 PO Last administered on 20:07; Admin Dose 10 MG; Start 08/08/16 at 21:00 Diphenhydramine HCl (Benadryl) 25 mg Q6H PRN IV ALLERGIC REACTION; Start at 23:15 Doxepin HCl (Sinequan) 10 mg HS PO Last administered on 08/13/16 20:08; Admin Dose 10 MG; Start 08/08/16 at 21:00 Duloxetine HCl (Cymbalta) 60 mg DAILY PO Last administered on 08/14/16 08:40; Admin Dose 60 MG; Start 08/08/16 at 09:00 Estrogens Conjugated 0.3 mg 0.3 mg DAILY PO Last administered on 08/14/16 10: 24; Admin Dose 0.3 MG; Start 08/08/16 at 09:00 Fat Emulsion Intravenous (Liposyn Ii 20%) 250 ml @ 20.833 mls/ hr DAILY@16 IV Last administered on 08/13/16 16:20; Admin Dose 20.833 MLS/HR; Start 08/08/16 at 16:00 Diagnostic Test (Pha) 1 ea 1 ea Q12 XX Last administered on 08/14/16 08:43; Admin Dose 1 EA; Start 08/09/16 at 09:00 Total Parenteral Nutrition (Tpn) 1,000 ml @ 60 mls/hr [id number] IV Last administered on 08/14/16 00:35; Admin Dose 60 MLS/HR; Start 08/08/16 at 10:00 Bisacodyl (Dulcolax Supp) 10 mg DAILY PRN [place] CONSTIPATION; Start 08/08/16 at 04 :30 Lactulose (Enulose) 20 gm DAILY PRN PO CONSTIPATION; Start 08/08/16 at 04:30 Amoxicillin (Amoxicillin) 500 mg Q8 PO Last administered on 08/14/16 06:33; Admin Dose 500 MG; Start 08/12/16 at 14:00; Stop 08/19/16 at 13:59 Pantoprazole (Protonix Tab) 40 mg DAILY@06 PO Last administered on 08/14/16 06 :33; Admin Dose 40 MG; Start 08/14/16 at 06:00 Lorazepam (Ativan) 0.5 mg Q4H PRN PO ANXIETY Last administered on 08/13/16 22: 34; Admin Dose 0.5 MG; Start 08/13/16 at 17:00 Assessment/Plan Additional Assessment/Plan Rehab- Cervical myelopathy-s/p surgery Functional status improving, pain decreasing Dysphagia- case d/w surgeon. Will continue oral intake and monitor calorie count , and adhere to swallowing precautions, have 3 meals a day with boost supplement, and dc TPN. Anticipate continued swallowing improvement. GERD hyperlipdemia Functional Impact of Comorbidities: Dysphagia discussed above NEVAEH QUEZADA MD Aug 14, 2016 10:42
[2016-08-14 20:00] VITALS: BP 116/56; RESP 18
[2016-08-14] MEDS: ATORVASTATIN 10 MG TAB PO SCH (20:29)
[2016-08-14] MEDS: DOXEPIN 10 MG CAP PO SCH (20:32)
[2016-08-14] MEDS: LORAZEPAM 0.5 MG TAB PO PRN (22:48)
[2016-08-15] MEDS: AMOXICILLIN 500 MG CAP PO SCH ×3 (06:43→20:41)
[2016-08-15] MEDS: HYDROCODONE/APAP (5/325) TAB PO PRN ×3 (06:43→23:48)
[2016-08-15] MEDS: PANTOPRAZOLE (EC) 40 MG TAB PO SCH (06:43)
[2016-08-15 07:30] VITALS: BP 108/55; RESP 18
[2016-08-15] MEDS: PREGABALIN 25 MG CAP PO SCH ×2 (09:15→20:41)
[2016-08-15] MEDS: DULOXETINE 30 MG CAP DR PO SCH (09:15)
[2016-08-15] MEDS: SERTRALINE 100 MG TAB PO SCH ×2 (09:15→20:41)
[2016-08-15] MEDS: ESTROGENS CONJUGATED 0.3 MG TAB PO SCH (09:16)
[2016-08-15] MEDS: SALMETEROL/FLUTICASONE 250/50 INHA INH SCH ×2 (09:16→20:41)
--- NOTE | 2016-08-15 11:03 | RADRPT ---
PROCEDURE: Video-fluoroscopy swallowing study. CLINICAL INDICATION: Dysphagia. TECHNIQUE: Fluoroscopic guided video swallowing study was done in conjunction with the speech ther apist. The study was confined to the oral, pharyngeal, and cervical phases of the swallowing mechani sm. 2.5 minutes of fluoroscopy time was used. 33 series of images were obtained. COMPARISON: 08/06/2016. FINDINGS: There is aspiration during swallowing with delayed cough. There was one episode of silent aspiratio n during swallowing. IMPRESSION: 1. Abnormal study with aspiration during swallowing. One episode of silent aspiration was noted. 2. Please refer to the speech therapist's recommendations for future feedings. RPTAT: QQ .Maurilio Perez MD, MD Date Time Electronically viewed and signed by .Maurilio Perez MD, MD on 08/15/2016 11:03 .R/
--- NOTE | 2016-08-15 14:57 | PN ---
Date/Time of Note Date/Time of Note DATE: 08/15/16 TIME: 14:54 Assessment/Plan VTE Prophylaxis VTE Prophylaxis Intervention: SCD's Lines/Catheters IV Catheter Type (from Nrs): PICC Line Central line still needed: No Urinary Cath still in place: No Assessment/Plan Problems: (1) Aftercare following surgery of the musculoskeletal system Status: Acute Comment: Patient is recuperating slowly. The patient wishes to go to an ECF temporarily as she thinks will take her some time to get adequately competent for managing her affairs at home. (2) Hyperlipidemia Status: Chronic Comment: Continue appropriate treatment Qualifiers: Hyperlipidemia type: pure hypercholesterolemia Qualified Code: E78.00 - Pure hypercholesterolemia (3) Cervical cord compression with myelopathy Status: Resolved Comment: Postop and recovering very slowly (4) Restless leg syndrome Status: Chronic Comment: Noted and stable (5) Asthma, mild intermittent Status: Chronic Comment: Well-controlled Qualifiers: Asthma complication type: uncomplicated Qualified Code: J45.20 - Mild intermittent asthma without complication (6) Status post cervical spinal fusion Status: Acute Comment: She had difficulties with swallowing post op. She has steadily improved and while she is not at baseline she is at the point where she no longer needs TPN. Subjective 24 Hr Interval Summary Constitutional: no complaints Respiratory: no complaints Cardiovascular: no complaints Gastrointestinal: no complaints Genitourinary: no complaints Exam/Review of Systems Vital Signs Vitals Vital Signs Date Time Temp Pulse Resp B/P Pulse Ox O2 Delivery O2 Flow Rate FiO2 08/15/16 07:30 98.0 69 18 108/55 95 Intake and Output 08/14/16 08/14/16 08/15/16 15:00 23:00 07:00 Intake Total 960 ml 840 ml 240 ml Output Total 400 ml 200 ml 850 ml Balance 560 ml 640 ml -610 ml Exam Constitutional: alert, oriented Neck: non-tender, supple Respiratory: clear to auscultation, normal air movement Cardiovascular: nl pulses, regular rate and rhythm Results Result Diagram: 08/14/16 0630 Medications Medications Current Medications Prochlorperazine (Compazine Inj) 5 mg Q4H PRN IV NAUSEA AND/OR VOMITING; Start 08/07/16 at 23:15 IV Flush (NS 10 ml) 10 ml PRN PRN IV FLUSH LINE; Start 08/07/16 at 23:30 Salmeterol Xinafoate/ Fluticasone (Advair 250/50 Diskus) 1 inh BID INH Last administered on 08/15/16 09:16; Admin Dose 1 INH; Start 08/08/16 at 09:00 Sertraline HCl (Zoloft) 100 mg BID PO Last administered on 08/15/16 09:15; Admin Dose 100 MG; Start 08/08/16 at 09:00 Acetaminophen/ Hydrocodone Bitart ([place] (5/325)) 1 tab Q4H PRN PO PAIN Last administered on 08/10/16 15:46; Admin Dose 1 TAB; Start 08/07/16 at 23:15 Acetaminophen/ Hydrocodone Bitart ([place] (5/325)) 2 tab Q4H PRN PO PAIN Last administered on 08/15/16 13:30; Admin Dose 2 TAB; Start 08/07/16 at 23:15 Morphine Sulfate (morphine) 1 mg Q3H PRN IV PAIN Last administered on 00:55; Admin Dose 1 MG; Start 08/07/16 at 23:15 Naloxone HCl (Narcan) 0.2 mg Q2M PRN IV DECREASED REPIRATORY RATE; Start at 23:15 Ondansetron HCl (Zofran Inj) 4 mg Q6H PRN IV NAUSEA AND/OR VOMITING Last administered on 08/14/16 01:02; Admin Dose 4 MG; Start 08/07/16 at 23:15 Pregabalin (Lyrica) 100 mg BID PO Last administered on 08/15/16 09:15; Admin Dose 100 MG; Start 08/08/16 at 09:00 Acetaminophen 650 mg 650 mg Q4H PRN PO PAIN AND OR ELEVATED TEMP Last administered on 08/10/16 06:59; Admin Dose 650 MG; Start 08/07/16 at 23:15 Acetaminophen (Ofirmev 1000mg/ 100ml Iv) 100 ml @ 400 mls/hr Q6H PRN IVPB PAIN AND OR ELEVATED TEMP Last administered on 08/08/16 11:39; Admin Dose 400 MLS/HR; Start 08/07/16 at 23:15 Atorvastatin Calcium (Lipitor) 10 mg DAILY@21 PO Last administered on 20:29; Admin Dose 10 MG; Start 08/08/16 at 21:00 Diphenhydramine HCl (Benadryl) 25 mg Q6H PRN IV ALLERGIC REACTION; Start at 23:15 Doxepin HCl (Sinequan) 10 mg HS PO Last administered on 08/14/16 20:32; Admin Dose 10 MG; Start 08/08/16 at 21:00 Duloxetine HCl (Cymbalta) 60 mg DAILY PO Last administered on 08/15/16 09:15; Admin Dose 60 MG; Start 08/08/16 at 09:00 Estrogens Conjugated (Premarin) 0.3 mg DAILY PO Last administered on 08/15/16 09:16; Admin Dose 0.3 MG; Start 08/08/16 at 09:00 Bisacodyl (Dulcolax Supp) 10 mg DAILY PRN [place] CONSTIPATION; Start 08/08/16 at 04 :30 Lactulose (Enulose) 20 gm DAILY PRN PO CONSTIPATION; Start 08/08/16 at 04:30 Amoxicillin (Amoxicillin) 500 mg Q8 PO Last administered on 08/15/16 14:24; Admin Dose 500 MG; Start 08/12/16 at 14:00; Stop 08/19/16 at 13:59 Pantoprazole (Protonix Tab) 40 mg DAILY@06 PO Last administered on 08/15/16 06 :43; Admin Dose 40 MG; Start 08/14/16 at 06:00 Lorazepam (Ativan) 0.5 mg Q4H PRN PO ANXIETY Last administered on 08/14/16 22: 48; Admin Dose 0.5 MG; Start 08/13/16 at 17:00 MARQUIS GAMA MD Aug 15, 2016 14:57
[2016-08-15 20:02] VITALS: BP 110/62; RESP 18
[2016-08-15] MEDS: DOXEPIN 10 MG CAP PO SCH (20:41)
[2016-08-15] MEDS: ATORVASTATIN 10 MG TAB PO SCH (20:41)
[2016-08-15] MEDS: LORAZEPAM 0.5 MG TAB PO PRN (20:49)
[2016-08-16] MEDS: PANTOPRAZOLE (EC) 40 MG TAB PO SCH (06:34)
[2016-08-16] MEDS: AMOXICILLIN 500 MG CAP PO SCH (06:34)
[2016-08-16 07:47] VITALS: BP 99/50; RESP 18
[2016-08-16] MEDS: SERTRALINE 100 MG TAB PO SCH (09:29)
[2016-08-16] MEDS: ESTROGENS CONJUGATED 0.3 MG TAB PO SCH (09:29)
[2016-08-16] MEDS: DULOXETINE 30 MG CAP DR PO SCH (09:29)
[2016-08-16] MEDS: PREGABALIN 25 MG CAP PO SCH (09:29)
[2016-08-16] MEDS: SALMETEROL/FLUTICASONE 250/50 INHA INH SCH (09:30)
[2016-08-16] MEDS: HYDROCODONE/APAP (5/325) TAB PO PRN (13:28)
--- NOTE | 2016-08-16 16:20 | DS ---
Date/Time of Note Date/Time of Note DATE: 08/16/16 TIME: 16:15 Discharge Summary Admission/Discharge Info Admit Date/Time Aug 07, 2016 at 22:11 Discharge Date/Time Aug 16, 2016 at 13:45 Discharge Diagnosis Cervical spine stenosis status post decompressive cervical laminectomy. Postoperative anterior cervical spine hematoma causing compression system symptoms and the inability to swallow. Gastroesophageal reflux disease; hyperlipidemia; overactive bladder; asthma persistent mild Patient Condition: Fair Consults Spinal surgery/Dr. Ortiz; rehabilitative medicine/Dr. Medina Procedures Formal physical therapy and rehabilitation; swallowing studiesvideo swallow study Hx of Present Illness This is a 75-year-old female with a past medical history significant for asthma , dysthymia, hyperlipidemia, restless leg syndrome, overactive bladder, who initially presented to neurosurgery physician with progressively worsening bilateral neck and shoulder pain and progressive difficulty with gait, balance and manual dexterity for the past six months. She had an MRI of her cervical spine which showed cervical stenosis C4 to C7 with myelomalacia and C4 to C5 anterolisthesis. She was recommended surgical intervention and went to the OR on 08/01/2016. She underwent anterior cervical C4 to C5 diskectomy, partial cervical C4 vertebrectomy, partial cervical C5 vertebrectomy and anterior cervical C4 to C5 instrumented fusion, anterior cervical C5 to C6 diskectomy, partial cervical C6 vertebrectomy, anterior cervical C5 to C6 instrumented fusion, anterior cervical C6 to C7 diskectomy, partial cervical C7 vertebrectomy , anterior cervical C6 to C7 instrumented fusion by Dr. Ortiz and Dr. Velasco. No reported intraoperative complications. Postoperative course was complicated by acute postoperative pain as well as dysphagia. The patient underwent a modified barium swallow evaluation and was recommended n.p.o. for the time being and currently she is on TPN. The patient did work with physical and occupational therapy as well and currently she is requiring moderate assistance for her ADLs. She is requiring minimal assistance for transfers and gait 70 feet with a walker. Due to the patient's ongoing medical comorbidities and significant overall functional decline from her baseline independent status , the patient was recommended to benefit from acute inpatient rehabilitation. Hospital Course 75-year-old female. She was admitted to the rehabilitation unit due to the inability to swallow and being on TPN. She underwent physical rehabilitation which should progress with nicely. Her swallowing slowly improved as expected. She was advanced by speech therapy has been swallowing mechanically thick liquids. She is now at the point where she is off of TPN able to take p.o. adequately and continue with rehabilitation. She however is not yet fully competent to manage her own affairs in her own home. As such she is being transferred to an extended care facility. Her rehabilitation potential is good she has no known communicable diseases she is not hazard to herself or others she is competent for medical decisions. Home Meds Reported Medications Duloxetine Hcl* (Cymbalta*) 60 Mg Capsule.dr, 60 MG PO DAILY, CAP 08/01/16 Estrogens Conjugated* (Premarin*) 0.3 Mg Tablet, 0 PO DAILY, TAB 08/01/16 Ibuprofen* (Ibuprofen*) 600 Mg Tablet, 600 MG PO Q6H Y for PAIN, TAB 08/01/16 Lovastatin* (Lovastatin*) 20 Mg Tablet, 20 MG PO HS, TAB 08/01/16 Doxepin Hcl* (Doxepin Hcl*) 10 Mg Capsule, 10 MG PO HS, CAP 08/01/16 Sertraline Hcl* (Sertraline Hcl*) 100 Mg Tablet, 100 MG PO BID, #30 TAB 08/01/16 Pregabalin* (Lyrica*) 100 Mg Capsule, 100 MG PO BID, CAP 08/01/16 Omeprazole* (Omeprazole*) 20 Mg Capsule.dr, 20 MG PO DAILY, #30 CAP 08/01/16 Follow-up Plan Spinal surgery in 2 weeks; swallowing study in 1 week. Primary Care Provider Not On Staff Doctor Time spent on discharge: > 30 minutes Copies To: CC: SILVIA ORTIZ MD, JOSHUA A MD Aug 16, 2016 16:20
--- NOTE | 2016-08-19 09:36 | DS ---
Date/Time of Note Date/Time of Note DATE: 08/19/16 TIME: 09:32 Discharge Summary Admission/Discharge Info Admit Date/Time Aug 07, 2016 at 22:11 Discharge Date/Time Aug 16, 2016 at 13:45 Discharge Diagnosis 1. Status post C4 to C7 anterior cervical diskectomy with partial colpectomy for cervical spondylytic myelopathy. 2. Improvements in mobility, gait and balance. 3. Improvements in self-care and activities of daily living. 4. History of falls. 5. Acute postoperative pain, improved 6. Dysphagia, improved 7. Anemia. 8. Hyperlipidemia. 9. Gastroesophageal reflux disease. 10. Overactive bladder. 11. Restless leg syndrome. 12. Asthma. 13. History of dysthymia. Cervical spine stenosis status post decompressive cervical laminectomy. Postoperative anterior cervical spine hematoma causing compression system symptoms and the inability to swallow. Gastroesophageal reflux disease; hyperlipidemia; overactive bladder; asthma persistent mild Patient Condition: Good Hospital Course Patient was admitted for comprehensive interdisciplinary rehab and made excellent functional gains during the course of the stay. Patient progressed from an initial moderate assist for self care and mobility, and progressed to the point of Stand By Assist for self care and mobility, including ambulating over 150 feet with the use of a front wheeled walker. Patient also made significant progress with dysphagia. She initially required TPN, but was tolerating dysphagia diet and meeting nutritional needs by mouth upon discharge. Despite excellent functional gains, patient concerned about going home, and is now able to tolerate lower level of care. Patient is being dc'd to SNF . DC medicines are per the medication reconciliation sheet. Home Meds Reported Medications Duloxetine Hcl* (Cymbalta*) 60 Mg Capsule.dr, 60 MG PO DAILY, CAP 08/01/16 Estrogens Conjugated* (Premarin*) 0.3 Mg Tablet, 0 PO DAILY, TAB 08/01/16 Ibuprofen* (Ibuprofen*) 600 Mg Tablet, 600 MG PO Q6H Y for PAIN, TAB 08/01/16 Lovastatin* (Lovastatin*) 20 Mg Tablet, 20 MG PO HS, TAB 08/01/16 Doxepin Hcl* (Doxepin Hcl*) 10 Mg Capsule, 10 MG PO HS, CAP 08/01/16 Sertraline Hcl* (Sertraline Hcl*) 100 Mg Tablet, 100 MG PO BID, #30 TAB 6/15/17 Pregabalin* (Lyrica*) 100 Mg Capsule, 100 MG PO BID, CAP 08/01/16 Omeprazole* (Omeprazole*) 20 Mg Capsule., 20 MG PO DAILY, #30 CAP 08/01/16 Follow-up Plan SNF Primary Care Provider Not On Staff Doctor NEVAEH QUEZADA MD Aug 19, 2016 09:35
== END 2016-08-16 13:45 | DRG 560 ==
LOC: VRC 08-07 22:11
PROVIDERS: ADMIT Physical Medicine & Rehabilitation; ATTEND Internal Medicine
DX: Z47.89 Encounter for other orthopedic aftercare (principal); G95.29 Other cord compression; D64.9 Anemia, unspecified; N32.81 Overactive bladder; R13.10 Dysphagia, unspecified; G89.18 Other acute postprocedural pain; E87.6 Hypokalemia; E78.5 Hyperlipidemia, unspecified; K21.9 Gastro-esophageal reflux disease without esophagitis; J45.909 Unspecified asthma, uncomplicated; M54.2 Cervicalgia; F34.1 Dysthymic disorder; G25.81 Restless legs syndrome; Z74.09 Other reduced mobility; Z91.81 History of falling; R19.7 Diarrhea, unspecified
CPT/HCPCS: 74230; 80048; 80053; 81003; 82962; 83735; 84100; 85025; 87075; 87081; 87086; 92526; 92610; 92611; 97110; 97112; 97116; 97150; 97163; 97167; 97530; 97535; C9113; J2060; J2270; J2405